=== PATIENT | female | born 1950 | race Caucasian/White ===

== ENCOUNTER → 2016-12-25 | Outpatient (CLI) | payer OTHER, MEDICARE | LOC: FIMAGING 10:20 | PROVIDERS: ATTEND Physician Assistant | DX: D25.1 Intramural leiomyoma of uterus (principal); D25.2 Subserosal leiomyoma of uterus; Z78.0 Asymptomatic menopausal state ==

== ENCOUNTER → 2017-01-13 | Outpatient (CLI) | payer OTHER, MEDICARE | LOC: FIMAGING 10:45 | PROVIDERS: ATTEND Surgery | DX: Z12.39 Encounter for other screening for malignant neoplasm of breast (principal); N63 Unspecified lump in breast ==

== ENCOUNTER → 2017-03-10 | Outpatient (CLI) | payer OTHER, MEDICARE | LOC: FIMAGING 10:59 | PROVIDERS: ATTEND Family Medicine | DX: M54.5 Low back pain (principal); R93.7 Abnormal findings on diagnostic imaging of other parts of musculoskeletal system ==

== ENCOUNTER → 2017-06-04 | Outpatient (CLI) | payer OTHER, MEDICARE | LOC: FIMAGING 10:10 | PROVIDERS: ATTEND Surgery | DX: Z12.31 Encounter for screening mammogram for malignant neoplasm of breast (principal); Z80.3 Family history of malignant neoplasm of breast | CPT/HCPCS: G0202 ==

== ENCOUNTER 2017-12-09 18:38 | Emergency (ER) | payer OTHER, MEDICARE ==
[2017-12-09 18:47] VITALS: TEMP 98.2
--- NOTE | 2017-12-09 19:10 | CPEKG ---
Heart Rate: 77 RR Interval: 779 P-R Interval: 156 QRSD Interval: 74 QT Interval: 404 QTC Interval: 458 P Long Barn: 76 QRS Long Barn: 73 T Wave Long Barn: 41 EKG Severity - NORMAL ECG - EKG Impression: SINUS RHYTHM Electronically Signed By: Candelario Will 09-Dec-2017 19:19:59
--- NOTE | 2017-12-09 19:19 | EDPHY ---
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 Today she was at home and at around 1800 had sudden onset of severe right lower chest and upper abdomen pain radiating into her epigastrium and her right jaw which lasted 15 min. She describes it as pain which was"intense"and is essentially gone now. Not positional or pleuritic. Not associated with fever or chills. No vomiting or diarrhea. Not short of breath. No recent injury or trauma. REVIEW OF SYSTEMS: Eye: no change in vision ENT: no sore throat, no dental symptoms Cardiac: HPI Pulmonary: no cough or SOB Abdomen: HPI Musculoskeletal: no back pain Skin: no rash Neuro: no headache Constitutional: no fever : no urinary symptoms A comprehensive 10 point review of systems is otherwise negative aside from elements mentioned in the history of present illness. PAST MEDICAL HISTORY: Leiomyosarcoma, hysterectomy, fibula fracture, GERD. Negative for diabetes hypertension or hypercholesterolemia Nonsmoker, brother had an AL 2 years ago, they are 11 months apart Social history: Here with and brother, nonsmoker General Appearance: Alert and conversant, cooperative. Eyes: No scleral icterus. ENT, Mouth: Normal mucous membranes. No gum swelling or trismus. Normal pharynx. No jaw tenderness or external facial swelling. Respiratory: Normal respiratory effort, breath sounds equal, lungs are clear to auscultation. No splinting. Cardiovascular: Regular rate and rhythm. Gastrointestinal: Abdomen is soft and non tender. No Astorga sign and no epigastric tenderness. Neurological: Alert, face symmetric, normal motor and sensory in extremities. Skin: Warm and dry, no rashes. Musculoskeletal: No peripheral edema. Psychiatric: Not agitated. Emergency Department course/MDM: Low clinical suspicion for PE, D-dimer ordered. LFTs and lipase. EKG is normal, checked troponin. Patient says that"I think my stomach might be inflamed." 2013: Troponin negative, D-dimer 1.94, CTA discussed and consented. I think acute coronary syndrome or AL would be unlikely; 2 points for age and 1 for risk factor of family history on heart score, low risk. 2043: CT shows stable liver, no pulmonary embolism or other chest abnormality per Dr. Aguilar. Results discussed at this time, still asymptomatic, stable for discharge. Smoking Status: Never smoked Constitutional: Initial Vital Signs Temperature (C) 36.8 C 12/09/17 18:45 Heart Rate 88 12/09/17 18:45 Respiratory Rate 18 12/09/17 18:45 Blood Pressure 118/51 L 12/09/17 18:45 O2 Sat (%) 96 12/09/17 18:45 O2 Delivery Mode Room Air Allergies/Adverse Reactions: codeine Allergy (Verified 12/09/17 18:43) diphenhydramine [From Benadryl] Allergy (Verified 12/09/17 18:43) Home Medications: Medication Instructions Recorded Cholecalciferol Vit D3 [Vitamin D3 5,000 units PO DAILY 06/30/15 (*)] Herbals/Supplements -Info Only 1 ea PO DAILY 06/30/15 Melatonin [Melatonin 5 mg] 20 mg PO HS 06/30/15 [place]-3 Fatty Acids [Fish Oil 1000 4,000 mg PO DAILY 06/30/15 mg (*)] Vitamin B Complex [B Complex] 1 tab PO DAILY 06/30/15 Cholecalciferol Vit D3 [Vitamin D3 5,000 units PO DAILY #0 tab 07/02/15 (*)] Melatonin [Melatonin 5 Mg] 0 mg PO HS 07/02/15 [place]-3 Fatty Acids [Fish Oil 1000 4,000 mg PO DAILY #0 cap 07/02/15 mg (*)] Omeprazole 12/09/17 Medical Decision Making - Diagnostics EKG Interpretation: 12-lead EKG interpreted by me; official reading is in trace master. My interpretation is sinus rhythm rate 77 with no ischemic changes, normal Imaging Results: Imaging Impressions Chest/Thorax CTA 12/09/17 20:14 Impression: 1. No evidence of pulmonary embolus using CT protocol. 2. Liver lesions are once again noted. Findings discussed with Candelario Will M.D. at 20:44 hour, 12/09/2017. Imaging: Discussed imaging studies w/ grooving machine operator Radiologist Differential Diagnosis: Differential diagnosis considered for chest pain including but not limited to gallbladder disease, hepatitis, pancreatitis, myocardial ischemia, aortic dissection, pericarditis, pulmonary embolus, chest wall pain, pleural inflammation and pulmonary infectious causes. - Data Points Laboratory Results: Laboratory Results 12/09/17 19:28 12/09/17 19:28 18 18 18 19:28 19:28 19:28 WBC 6.42 10^3/uL 10^3/uL (3.80-9.50) RBC 3.82 10^6/uL L 10^6/uL (4.18-5.33) Hgb 12.4 g/dL L g/dL (12.6-16.3) Hct 36.4 % L % (38.0-47.0) MCV 95.3 fL fL (81.5-99.8) MCH 32.5 pg pg (27.9-34.1) MCHC 34.1 g/dL g/dL (32.4-36.7) RDW 14.3 % % (11.5-15.2) Plt Count 289 10^3/uL 10^3/uL (150-400) MPV 9.2 fL fL (8.7-11.7) Neut % (Auto) 70.8 % % (39.3-74.2) Lymph % (Auto) 22.1 % % (15.0-45.0) [place] % (Auto) 5.6 % % (4.5-13.0) Eos % (Auto) 0.0 % L % (0.6-7.6) Baso % (Auto) 0.9 % % (0.3-1.7) Nucleat RBC Rel Count 0.0 % % (0.0-0.2) Absolute Neuts (auto) 4.54 10^3/uL 10^3/uL (1.70-6.50) Absolute Lymphs (auto) 1.42 10^3/uL 10^3/uL (1.00-3.00) Absolute Monos (auto) 0.36 10^3/uL 10^3/uL (0.30-0.80) Absolute Eos (auto) 0.00 10^3/uL L 10^3/uL (0.03-0.40) Absolute Basos (auto) 0.06 10^3/uL 10^3/uL (0.02-0.10) Absolute Nucleated RBC 0.00 10^3/uL 10^3/uL (0-0.01) Immature Gran % 0.6 % % (0.0-1.1) Immature Gran # 0.04 10^3/uL 10^3/uL (0.00-0.10) D-Dimer 1.94 ug/mLFEU H ug/mLFEU (0.00-0.50) Sodium 139 mEq/L mEq/L (135-145) Potassium 4.5 mEq/L mEq/L (3.5-5.2) Chloride 103 mEq/L mEq/L (97-110) Carbon Dioxide 28 mEq/l mEq/l (22-31) Anion Gap 8 mEq/L mEq/L (8-16) BUN 20 mg/dL mg/dL (7-23) Creatinine 0.6 mg/dL mg/dL (0.6-1.0) Estimated GFR > 60 Glucose 102 mg/dL H mg/dL (70-100) Calcium 9.2 mg/dL mg/dL (8.5-10.4) Total Bilirubin 0.4 mg/dL mg/dL (0.1-1.4) Conjugated Bilirubin 0.4 mg/dL mg/dL (0.0-0.5) Unconjugated Bilirubin 0.0 mg/dL mg/dL (0.0-1.1) AST 33 IU/L IU/L (14-46) ALT 59 IU/L H IU/L (9-52) Alkaline Phosphatase 141 IU/L H IU/L (38-126) Troponin I < 0.012 ng/mL ng/mL (0.000-0.034) Total Protein 6.3 g/dL g/dL (6.3-8.2) Albumin 3.7 g/dL g/dL (3.5-5.0) Lipase 161 IU/L IU/L (23-300) Departure - Departure Disposition: Home, Routine, Self-Care Clinical Impression: Chest pain Qualifiers: Chest pain type: unspecified Qualified Code(s): R07.9 - Chest pain, unspecified Condition: Good Instructions: Chest Pain (ED) Referrals: Maryellen Cardenas MD [Primary Care Provider] - As per Instructions
[2017-12-09 19:42] LABS: PLATELET COUNT 289 10^3/uL (150-400)
[2017-12-09] MEDS ORDERED: IOPAMIDOL (ISOVUE 370) 100 ML BTL IV ONE (20:16)
[2017-12-09 20:40] VITALS: RESP 16
[2017-12-09 20:58] VITALS: BP 106/63; PULSE 74; O2SAT 96
== END 2017-12-09 21:02 | disposition home or self-care (01) ==
DX: R07.9 Chest pain, unspecified (principal); Z90.710 Acquired absence of both cervix and uterus
CPT/HCPCS: 71275; 93005; 99285; Q9967

== ENCOUNTER → 2018-02-04 | Outpatient (CLI) | payer OTHER, MEDICARE | LOC: BHFA 11:30 | PROVIDERS: ATTEND Internal Medicine Cardiovascular Disease | DX: C49.9 Malignant neoplasm of connective and soft tissue, unspecified (principal) ==

== ENCOUNTER 2018-02-25 19:34 | Inpatient (IN) | payer OTHER, MEDICARE ==
--- NOTE | 2018-02-25 20:18 | EDPHY ---
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 Throughout the day she has felt slightly cold and generally under the weather. She checked her temperature around 19:00, about 1 hour ago, and measured it at 101F. She has not taken any antipyretics. She has also had a dry cough for the last 3 weeks. She most recently had chemotherapy on 02/23, 2 days ago, which was her 5th cycle. She is receiving Adriamycin and the Lartruvo. She denies vomiting, sore throat headache , earache, dyspnea, chest pain, dyspnea, urinary symptoms. She has some watery stools intermittently at baseline, but not today. She also thinks she has a thrush infection in her mouth. REVIEW OF SYSTEMS: A 10 point review of systems was performed and is negative with the exception of the elements mentioned in the history of present illness. Past medical history: 1. Leiomyosarcoma, on chemotherapy currently - Doxorubicin, Olaratumab 2. GERD Past surgical history: 1. Hysterectomy 2. Tumor resection from outside of small intestine 10/19/17, Dr. Colon. 3. Left femur fracture repair 06/30/15 Prior medical records reviewed including ED visit 12/09/17 for chest pain. Family history: Noncontributory Social history: at bedside. Nonsmoker. 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 Has seen Dr. Shannon at [facility]. Adult Physical: General Appearance: Alert, no acute distress. Eyes: Pupils equal and round, no conjunctival injection, no discharge. ENT, Mouth: Mucous membranes are moist, no oropharyngeal erythema or edema. No thrush visualized. Neck: No lymphadenopathy, supple. Respiratory: Lungs are clear to auscultation but distant bilaterally; no wheezes , rales, or rhonchi. Cardiovascular: Tachycardic regular rate and rhythm; no murmur, rub, or gallop. Port in place, left chest. Gastrointestinal: Abdomen is soft and non tender, no masses or organomegaly. Skin: Warm and dry, no rashes, normal color. Back: Nontender to palpation over the thoracolumbar spine. Extremities: No lower extremity edema, no calf tenderness or swelling. Neurological: Alert and oriented. Moving all four extremities easily and equally. Psychiatric: Normal affect. - Personal History Current Tetanus/Diphtheria Vaccine: Yes Current Tetanus Diphtheria and Acellular Pertussis (TDAP): Yes - Medical/Surgical History Hx Asthma: No Hx Chronic Respiratory Disease: No Hx Diabetes: No Hx Cardiac Disease: No Hx Renal Disease: No Hx Cirrhosis: No Hx Alcoholism: No Hx HIV/AIDS: No Hx Splenectomy or Spleen Trauma: No Other PMH: l fibular fx 2012, osteoporosis, right breast surgery, gerd. liver cancer - Social History Smoking Status: Never smoked Constitutional: Initial Vital Signs Temperature (C) 37.5 C 02/25/18 19:51 Heart Rate 106 H 02/25/18 19:51 Respiratory Rate 18 02/25/18 19:51 Blood Pressure 122/60 H 02/25/18 19:51 O2 Sat (%) 96 02/25/18 19:51 O2 Delivery Mode Room Air Allergies/Adverse Reactions: codeine Allergy (Verified 12/09/17 18:43) diphenhydramine [From Benadryl] Allergy (Verified 12/09/17 18:43) Home Medications: Medication Instructions Recorded Herbals/Supplements -Info Only 1 ea PO DAILY 06/30/15 Melatonin [Melatonin 5 mg] 20 mg PO HS 06/30/15 Vitamin B Complex [B Complex] 1 tab PO DAILY 06/30/15 Cholecalciferol Vit D3 [Vitamin D3 5,000 units PO DAILY #0 tab 07/02/15 (*)] Adriamycin 02/25/18 Doxorubicin HCl 02/25/18 Medical Decision Making - Diagnostics Imaging Results: Imaging Impressions Chest X-Ray 02/25/18 20:24 Impression: 1. Hyperexpansion suggests airways disease. 2. Negative for pneumonia. 3. See above report for additional findings. Imaging: I viewed and interpreted images myself ED Course/Re-evaluation: This is a 67 y/o female currently undergoing chemotherapy (most recent dose 02/23 ) for leiomyosarcoma and presents with a 1-hour history of a fever of 101F with associated general malaise and chills throughout the day. She is tachycardic on exam with equal but distant breath sounds. Concern for neutropenic fever. Plan for IV, labs, UA, cultures, chest x-ray. Chest x-ray: no pneumonia WBC extremely low at 0.74. Lactate, CHEM, and urine are normal. Patient will require treatment and admission for neutropenic fever of unknown source without sepsis. Consulted with Dr. Anand, oncologist. He recommends admission and treatment with IV Cefepime. Spoke with hospitalist service. Dr. Amin accepts admission. Differential Diagnosis: Considered a differential diagnosis that includes but is not limited to sepsis, neutropenic fever, pneumonia, influenza, urinary tract infection, intra- abdominal infection, viral illness. - Data Points Laboratory Results: Laboratory Results 02/25/18 20:35 02/25/18 20:55 02/25/18 02/25/18 02/25/18 21:00 20:55 20:55 WBC RBC Hgb Hct MCV MCH MCHC RDW Plt Count MPV Neut % (Auto) Lymph % (Auto) [place] % (Auto) Eos % (Auto) Baso % (Auto) Nucleat RBC Rel Count Absolute Neuts (auto) Absolute Lymphs (auto) Absolute Monos (auto) Absolute Eos (auto) Absolute Basos (auto) Absolute Nucleated RBC Immature Gran % Immature Gran # Smear Review By PT 12.9 SEC SEC (12.0-15.0) INR 0.95 (0.83-1.16) APTT 31.3 SEC SEC (23.0-38.0) VBG Lactic Acid Sodium 135 mEq/L mEq/L (135-145) Potassium 3.8 mEq/L mEq/L (3.3-5.0) Chloride 101 mEq/L mEq/L (97-110) Carbon Dioxide 23 mEq/l mEq/l (22-31) Anion Gap 11 mEq/L mEq/L (8-16) BUN 19 mg/dL mg/dL (7-23) Creatinine 0.6 mg/dL mg/dL (0.6-1.0) Estimated GFR > 60 Glucose 103 mg/dL H mg/dL (70-100) Calcium 8.7 mg/dL mg/dL (8.5-10.4) Total Bilirubin 0.4 mg/dL mg/dL (0.1-1.4) Urine Color YELLOW Urine Appearance HAZY Urine pH 7.0 (5.0-7.5) Ur Specific [place] 1.008 (1.002-1.030) Urine Protein NEGATIVE (NEGATIVE) Urine Ketones NEGATIVE (NEGATIVE) Urine Blood NEGATIVE (NEGATIVE) Urine Nitrate NEGATIVE (NEGATIVE) Urine Bilirubin NEGATIVE (NEGATIVE) Urine Urobilinogen NEGATIVE EU EU (0.2-1.0) Ur Leukocyte Esterase NEGATIVE (NEGATIVE) Urine Glucose NEGATIVE (NEGATIVE) 02/25/18 02/25/18 20:35 20:35 WBC 0.74 10^3/uL L* 10^3/uL (3.80-9.50) RBC 2.75 10^6/uL L 10^6/uL (4.18-5.33) Hgb 8.9 g/dL L g/dL (12.6-16.3) Hct 26.6 % L % (38.0-47.0) MCV 96.7 fL fL (81.5-99.8) MCH 32.4 pg pg (27.9-34.1) MCHC 33.5 g/dL g/dL (32.4-36.7) RDW 15.0 % % (11.5-15.2) Plt Count 61 10^3/uL L 10^3/uL (150-400) MPV 10.3 fL fL (8.7-11.7) Neut % (Auto) 4.0 % L % (39.3-74.2) Lymph % (Auto) 75.7 % H % (15.0-45.0) [place] % (Auto) 4.1 % L % (4.5-13.0) Eos % (Auto) 10.8 % H % (0.6-7.6) Baso % (Auto) 2.7 % H % (0.3-1.7) Nucleat RBC Rel Count 0.0 % % (0.0-0.2) Absolute Neuts (auto) 0.03 10^3/uL L 10^3/uL (1.70-6.50) Absolute Lymphs (auto) 0.56 10^3/uL L 10^3/uL (1.00-3.00) Absolute Monos (auto) 0.03 10^3/uL L 10^3/uL (0.30-0.80) Absolute Eos (auto) 0.08 10^3/uL 10^3/uL (0.03-0.40) Absolute Basos (auto) 0.02 10^3/uL 10^3/uL (0.02-0.10) Absolute Nucleated RBC 0.00 10^3/uL 10^3/uL (0-0.01) Immature Gran % 2.7 % H % (0.0-1.1) Immature Gran # 0.02 10^3/uL 10^3/uL (0.00-0.10) Smear Review By Pending PT INR APTT VBG Lactic Acid 1.1 mmol/L mmol/L (0.7-2.1) Sodium Potassium Chloride Carbon Dioxide Anion Gap BUN Creatinine Estimated GFR Glucose Calcium Total Bilirubin Urine Color Urine Appearance Urine pH Ur Specific [place] Urine Protein Urine Ketones Urine Blood Urine Nitrate Urine Bilirubin Urine Urobilinogen Ur Leukocyte Esterase Urine Glucose Medications Given: Discontinued Medications Cefepime HCl 1 gm/ Sterile (Water) 11.3 mls @ 135.6 mls/hr IV EDNOW ONE PRN Reason: Protocol Stop: 02/25/18 22:15 Last Admin: 02/25/18 22:47 Dose: 11.3 mls Lorazepam (Ativan Injection) 1 mg IVP EDNOW ONE Stop: 02/25/18 22:35 Last Admin: 02/25/18 22:35 Dose: 1 mg Departure - Departure Disposition: [facility] Clinical Impression: Neutropenic fever Condition: Fair Report Scribed for: Adilia De Dios Report Scribed by: Sara Bruno Date of Report: 02/25/18 Time of Report: 20:18 Physician Review and Approval Statement: 02/25/18 22:53 Portions of this note were transcribed by the medical writer. I, Dr. Adilia De Dios, personally performed the history, physical exam, and medical decision- making; and confirmed the accuracy of the information in the transcribed note.
[2018-02-25 21:14] LABS: INR 0.95 (0.83-1.16); PROTIME(PATIENT) 12.9 SEC (12.0-15.0)
[2018-02-25 21:33] LABS: PLATELET COUNT 61 10^3/uL (150-400)
[2018-02-25] MEDS ORDERED: CEFEPIME HCL 1 GM in STERILE WATER INJ 11.3 ML IV ONE (22:11)
[2018-02-25] MEDS ORDERED: LORazepam 2 MG/ML INJ ONE (22:33)
[2018-02-25] MEDS ORDERED: LORazepam 2 MG/ML INJ IVP ONE (22:34)
[2018-02-25] MEDS ORDERED: ONDANSETRON 4 MG/2 ML VIAL IVP PRN (22:52)
[2018-02-25] MEDS ORDERED: HYDROCODONE/APAP 5/325 TAB PO PRN (22:52)
[2018-02-25] MEDS ORDERED: MELATONIN 3 MG TAB PO PRN (22:59)
[2018-02-26] MEDS ORDERED: diphenhydrAMINE 25 MG CAP PO PRN (00:02)
[2018-02-26] MEDS: NS 1,000 ML IV SCH (00:05)
--- NOTE | 2018-02-26 00:53 | PDGENHP ---
History and Physical - Chief Complaint Fever - History of Present Illness Source-patient provides history appears reliable. EMR was reviewed and case discussed with ED provider. HPI-this is a very pleasant 67-year-old female with past medical history significant for leiomyosarcoma who is currently undergoing chemotherapy cycle 5 last received on 02/23 with doxorubicin and olaratumab. Patient reports that she has been experiencing increased fatigue and malaise throughout the day. Approximately 7:00 p.m. She had a measured fever of 101 F at home. Patient also notes that all day she has been feeling quite chilled and had been bone Ling up in blankets and sweaters at home. She denies any nausea or vomiting. No rhinorrhea or sore throat. Patient denies any dysuria hematuria. She has noted a slight cough for the past 2-3 weeks that is dry and nonproductive. She also notices it is worsened and exacerbated when she ever she takes in a deep breath. She denies any wheezing. No known sick contacts. Patient denies any chest pain or palpitations. Her appetite has been slightly decreased. Her oral hydration however patient reports has been fairly good at approximately 64 oz of fluids daily however this evening patient reports that she did feel quite dry. History Information - Allergies/Home Medication List Allergies/Adverse Reactions: codeine Allergy (Verified 12/09/17 18:43) diphenhydramine [From Benadryl] Allergy (Verified 12/09/17 18:43) Home Medications: Herbals/Supplements -Info Only 1 ea PO DAILY 06/30/15 [Last Taken 06/30/15 08:30 ] Melatonin [Melatonin 5 mg] 20 mg PO HS 06/30/15 [Last Taken 06/29/15 22:00] Vitamin B Complex [B Complex] 1 tab PO DAILY 06/30/15 [Last Taken 06/30/15 08:30 ] Adriamycin 02/25/18 [Last Taken Unknown] Doxorubicin HCl 02/25/18 [Last Taken Unknown] I have personally reviewed and updated: family history, medical history, social history, surgical history - Past Medical History Additional medical history: Leiomyosarcoma, GERD, osteoporosis, liver cancer - Surgical History Additional surgical history: Power port placement the left. Hysterectomy. Tumor resection off of the bowel 10/19/2017. Left femur fracture repair. Right breast surgery. - Family History Additional family history: Mother-CHF in HTN. Brother-CAD/ID. No family members with history of cancer. - Social History Smoking Status: Never smoked Alcohol Use: None Drug Use: Marijuana (Patient takes marijuana tabs for sleep p.r.n..) Additional social history: Patient is lives with her . Review of Systems Review of Systems: ROS: 10pt was reviewed & negative except for what was stated in HPI & below Constitutional: Reports: malaise. Denies: chills, fever, weakness EENMT: Reports: no symptoms Cardiac: Reports: no symptoms Respiratory: Reports: cough. Denies: shortness of breath Gastrointestinal: Reports: no symptoms Genitourinary: Reports: no symptoms Muscolosketal: Reports: no symptoms Skin: Reports: no symptoms Neurological: Reports: no symptoms Hematologic/Lymphatic: Reports: anemia Physical Exam Physical Exam: Temp Pulse Resp BP Pulse Ox 36.8 C 90 16 110/60 94 02/25/18 23:45 02/25/18 23:45 02/25/18 23:45 02/25/18 23:45 02/25/18 23:45 Constitutional: no apparent distress, chronically ill appearing, other (Thin) Eyes: PERRL, anicteric sclera, EOMI, No scleral injection Ears, Nose, Mouth, Throat: no oral mucosal ulcers, dry mucous membranes, No poor dentition Cardiovascular: regular rate and rhythym, no murmur, rub, or gallop, No systolic murmur, No edema Peripheral Pulses: 1+: dorsalis-pedis (R), dorsalis-pedis (L) Respiratory: no respiratory distress, no rales or rhonchi, clear to auscultation , other (Occasional cough. Nonproductive.) Gastrointestinal: normoactive bowel sounds, no palpable masses, tenderness ( Patient with a little bit of tenderness in the lower abdomen centrally. No rebound or guarding appreciated.), No guarding, No distension Genitourinary: no bladder fullness, no bladder tenderness, No aguillon in urethra Skin: warm, normal color, no rashes or abrasions, no fluctuance, No erythema, No rash Musculoskeletal: full muscle strength, normal joint ROM, other (Patient able to sit up independently.), No generalized weakness Neurologic: AAOx3, sensation intact bilaterally, No facial droop Psychiatric: interacting appropriately, not anxious, not encephalopathic, thought process linear Lab Data & Imaging Review 02/25/18 20:35 02/25/18 20:55 WBC 0.74 10^3/uL (3.80-9.50) L* 02/25/18 20:35 RBC 2.75 10^6/uL (4.18-5.33) L 02/25/18 20:35 Hgb 8.9 g/dL (12.6-16.3) L 02/25/18 20:35 Hct 26.6 % (38.0-47.0) L 02/25/18 20:35 MCV 96.7 fL (81.5-99.8) 02/25/18 20:35 MCH 32.4 pg (27.9-34.1) 02/25/18 20:35 MCHC 33.5 g/dL (32.4-36.7) 02/25/18 20:35 RDW 15.0 % (11.5-15.2) 02/25/18 20:35 Plt Count 61 10^3/uL (150-400) L 02/25/18 20:35 MPV 10.3 fL (8.7-11.7) 02/25/18 20:35 Neut % (Auto) 4.0 % (39.3-74.2) L 02/25/18 20:35 Lymph % (Auto) 75.7 % (15.0-45.0) H 02/25/18 20:35 [place] % (Auto) 4.1 % (4.5-13.0) L 02/25/18 20:35 Eos % (Auto) 10.8 % (0.6-7.6) H 02/25/18 20:35 Baso % (Auto) 2.7 % (0.3-1.7) H 02/25/18 20:35 Nucleat RBC Rel Count 0.0 % (0.0-0.2) 02/25/18 20:35 Absolute Neuts (auto) 0.03 10^3/uL (1.70-6.50) L 02/25/18 20:35 Absolute Lymphs (auto) 0.56 10^3/uL (1.00-3.00) L 02/25/18 20:35 Absolute Monos (auto) 0.03 10^3/uL (0.30-0.80) L 02/25/18 20:35 Absolute Eos (auto) 0.08 10^3/uL (0.03-0.40) 02/25/18 20:35 Absolute Basos (auto) 0.02 10^3/uL (0.02-0.10) 02/25/18 20:35 Absolute Nucleated RBC 0.00 10^3/uL (0-0.01) 02/25/18 20:35 Immature Gran % 2.7 % (0.0-1.1) H 02/25/18 20:35 Immature Gran # 0.02 10^3/uL (0.00-0.10) 02/25/18 20:35 PT 12.9 SEC (12.0-15.0) 02/25/18 20:55 INR 0.95 (0.83-1.16) 02/25/18 20:55 APTT 31.3 SEC (23.0-38.0) 02/25/18 20:55 VBG Lactic Acid 1.1 mmol/L (0.7-2.1) 02/25/18 20:35 Sodium 135 mEq/L (135-145) 02/25/18 20:55 Potassium 3.8 mEq/L (3.3-5.0) 02/25/18 20:55 Chloride 101 mEq/L (97-110) 02/25/18 20:55 Carbon Dioxide 23 mEq/l (22-31) 02/25/18 20:55 Anion Gap 11 mEq/L (8-16) 02/25/18 20:55 BUN 19 mg/dL (7-23) 02/25/18 20:55 Creatinine 0.6 mg/dL (0.6-1.0) 02/25/18 20:55 Estimated GFR > 60 02/25/18 20:55 Glucose 103 mg/dL (70-100) H 02/25/18 20:55 Calcium 8.7 mg/dL (8.5-10.4) 02/25/18 20:55 Total Bilirubin 0.4 mg/dL (0.1-1.4) 02/25/18 20:55 Urine Color YELLOW 02/25/18 21:00 Urine Appearance HAZY 02/25/18 21:00 Urine pH 7.0 (5.0-7.5) 02/25/18 21:00 Ur Specific [place] 1.008 (1.002-1.030) 02/25/18 21:00 Urine Protein NEGATIVE (NEGATIVE) 02/25/18 21:00 Urine Ketones NEGATIVE (NEGATIVE) 02/25/18 21:00 Urine Blood NEGATIVE (NEGATIVE) 02/25/18 21:00 Urine Nitrate NEGATIVE (NEGATIVE) 02/25/18 21:00 Urine Bilirubin NEGATIVE (NEGATIVE) 02/25/18 21:00 Urine Urobilinogen NEGATIVE EU (0.2-1.0) 02/25/18 21:00 Ur Leukocyte Esterase NEGATIVE (NEGATIVE) 02/25/18 21:00 Urine Glucose NEGATIVE (NEGATIVE) 02/25/18 21:00 Imaging Review: PA and Lateral Chest Clinical Indications: Infection suspected in a 67-year-old female; patient meets sepsis criteria. Comparison: CT scan of the chest December 09, 2017 and chest radiography June 2015. Findings: The lungs are clear. Calcified granuloma is seen in the left upper lobe. There is hyperexpansion with flattening of the hemidiaphragms noted. A central venous catheter is in position. The heart size and pulmonary vascularity are normal. Pleural surfaces and bony thorax are negative for acute abnormality. Postoperative changes are noted on the right side in a patient with a history of breast cancer. Impression: 1. Hyperexpansion suggests airways disease. 2. Negative for pneumonia. 3. See above report for additional findings. Visualized and Interpreted Chest x-ray results: Yes Visualized and Interpreted imaging results: Yes Assessment & Plan Assessment: Pleasant 67-year-old female with history of leiomyosarcoma undergoing chemotherapy status post cycle 5. Who presents with complaints of fever to 101 F and generalized malaise. #Neutropenic fever (Acute) - no identified source at this time for potential infectious etiology. Chest x-ray does appear to be acceptable. She has complained of a nonproductive cough ongoing for the last 3 weeks. She denies any nausea vomiting diarrhea or dysuria hematuria. UA and other laboratory studies are otherwise unremarkable. Patient has been started on cefepime as per recommendations with Oncology. Will consult in the morning as well for further recommendations. Blood cultures x2 are also pending. Will hold off on of a addition of vancomycin no evidence of skin infections or potential port infection. Patient has been placed on neutropenic precautions. #Pancytopenia - following chemotherapy. Will monitor daily CBCs. H&H low normal but does not require any transfusion at this point. Patient also with a thrombocytopenia which will need to monitor closely. No anticipated plan for replacement unless H&H drops below 7 and 21 and platelet count below 10K without evidence of bleeding or as per Oncology Service. #Leiomyosarcoma - patient undergoing treatment with doxorubicin and olaratumab. oncology consultation in a.m. #GERD - patient is not currently receiving treatment. Asymptomatic at this time. #Osteoporosis - resume patient's home vitamin supplementation if desired or wait until discharge. FEN - IV fluids for supplementation. Electrolyte monitoring and replacement if needed. Regular diet with supplementation of Ensure chocolate preferred. Nutrition consult also requested. PPX-SCDs holding anticoagulation at this time in setting of pancytopenia and thrombocytopenia. Cor-anticipated full code however will need further discussion in the morning as patient increasingly somnolent after receiving Ativan in the ED. Disposition-patient admitted to inpatient status on the oncology/medical floor. Given history of fevers in severe neutropenia anticipate greater than 2 midnight stay with monitoring of patient's culture results.
[2018-02-26] MEDS: CEFEPIME HCL 1 GM in STERILE WATER INJ 11.3 ML IV SCH ×3 (05:00→20:53)
[2018-02-26 05:18] LABS: INR 1.03 (0.83-1.16); PROTIME(PATIENT) 13.7 SEC (12.0-15.0)
[2018-02-26 05:30] LABS: PLATELET COUNT 56 10^3/uL (150-400)
[2018-02-26] MEDS: SENNOSIDES/DOCUSATE SODIUM TAB PO SCH ×2 (10:08→19:55)
--- NOTE | 2018-02-26 10:11 | GCON ---
[f rep st] CONSULTATION INPATIENT ONCOLOGY CONSULTATION. DATE OF CONSULTATION: 02/26/2018 REFERRING PHYSICIAN: Bridgette Amin MD OUTPATIENT ONCOLOGIST: Dr. Codey Shannon. REASON FOR CONSULTATION: Febrile neutropenia. 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 She presented in October and was found to have a uterine tumor, along with a large 9.5 c m mesenteric mass. She later developed multiple liver metastases. [facility] under the direction of Dr. Román Bartholomew. She has been receiv ing Adriamycin and olaratumab, a monoclonal antibody used to treat soft-tissue sarcoma. She received cycle 5 on February 16. She has not been receiving growth factor support. Yesterday, she developed chil ls and a cough, and her temperature was 101. She came to the emergency department. A chest x-ray wa s unremarkable, though her neutrophil count was close to 0. She was started on cefepime and admitted overnight for observation. She says that she is feeling better this morning. PAST MEDICAL HISTORY: Ductal carcinoma in situ of the breast in 2013, treated with lumpectomy and ra diation. CURRENT MEDICATIONS: Include cefepime and [place] as needed for pain. ALLERGIES: She is allergic to codeine. FAMILY HISTORY: Noncontributory. SOCIAL HISTORY: She is a nonsmoker, nondrinker. Lives with her family. REVIEW OF SYSTEMS: Other than pertinent positives noted in the HPI, 14-point review of systems is ne gative. EXAMINATION: VITAL SIGNS: Her temperature is 36.9, blood pressure 110/68, heart rate 92, oxygen sat uration 95% on room air. GENERAL: She was a somewhat cachectic-appearing woman, breathing comfortab ly, no acute distress. HEENT: Sclerae anicteric. Oropharynx is clear. NECK: Supple. No lymphade nopathy. LUNGS: Notable for some rhonchi at the right base. CARDIAC: Regular rhythm. No murmurs, gallops, or rubs. ABDOMEN: Normoactive bowel sounds, nontender. EXTREMITIES: Without edema. 2+ pulses. NEUROLOGIC: She is alert and oriented x3. Strength and se nsation were normal. Gait was not tested. LABORATORY DATA: White count 0.72 with absolute neutrophil count of 10, hemoglobin 8.9, platelets 56 . Basic metabolic panel was normal. Chest x-ray showed hyperinflation but no evidence of pneumonia. IMPRESSION: This is a 67-year-old woman, being treated with cytotoxic chemotherapy for metastatic le iomyosarcoma, presenting with severe neutropenia and fever. I suspect that she is developing right l ower lobe pneumonia based on her exam and symptoms, though nothing showed up on her chest x-ray done on admission. She is hemodynamically stable and remains profoundly neutropenic. RECOMMENDATIONS: 1. Continue cefepime. 2. Will await recovery of her white blood cells. In the past, her marcella has only lasted a few days. I do not think growth factor support is needed right now. 3. She will follow up on discharge with Dr. Bartholomew at the [facility]. He is apparently p edmundo another CT scan to see if her cancer is responding to therapy. We discussed the option for c linical trials if she needs another line of therapy, though it is not clear if there are any studies open in [place] that she would be eligible for. She also has the option of following up with Dr. Abel yao [facility]. We will continue to follow the patient with you closely while she is in the hospital. /[id number]/MODL
--- NOTE | 2018-02-26 11:15 | PDMN ---
Medical Necessity Medical necessity: est los>2mn for neutropenic fever of unknown source; currently on chemo for leiomyosarcoma; admit for IV abx, onc consult, IVF, and follow cx's; comorbid GERD, osteoporosis; per order and H&P 02/25/18
[2018-02-26] MEDS: MAGNESIUM OXIDE 400 MG TAB PO SCH ×3 (14:14→21:02)
--- NOTE | 2018-02-26 16:00 | ASMTCMCOM ---
CM Note CM Note Notes: Pt admitted for neutropenic fever.Pt curretnly on IV ABX. Anticipate that pt will DC on oral ABX and have no DC needs. CM available if needs change. Date Signed: 02/26/2018 03:59 PM Electronically Signed By:Pauly Bonilla LCSW
--- NOTE | 2018-02-26 17:59 | HOSPPROG ---
Hospitalist Progress Note Assessment/Plan: Assessment: 67 yo F p/w neutropenic fever Plan: # Neutropenic fever (Acute, new problem to this provider, further w/u indicated ) - no clearly identified source at this time, suspect GI translocation, only physical symptom non-productive cough, CXR w/o infiltrate (personally interpreted), UA wnl -get RVP -monitor BCx -remains severely neutropenic, cont on Cefepime as GI is most likely etiology of fever -per Dr. Anand, her neutropenia is usually fairly brief, so no indication for colony stimulating factor at this time -monitor neutrophil count, currently low Monos so will likely be another 48- 72hrs before ANC recovery # Acute atelectasis - present on exam, IS # Pancytopenia - 2/2 chemotherapy -no e/o bleeding -monitor CBC # Leiomyosarcoma - patient undergoing treatment with doxorubicin and olaratumab , appreciate ongoing oncology consultation #GERD - patient is not currently receiving treatment, asymptomatic at this time. #Osteoporosis - resume patient's home vitamin supplementation Diet - Regular diet with supplementation of Ensure chocolate preferred, Nutrition consult also requested. PPX - SCDs holding anticoagulation at this time in setting of pancytopenia and thrombocytopenia. Code - Full Dispo - ADD uncertain, remains severely neutropenic Subjective: patient reports no recurrent chills Objective: Vital Signs Temp Pulse Resp BP Pulse Ox 37.2 C 92 12 100/64 96 02/26/18 16:25 02/26/18 16:25 02/26/18 16:25 02/26/18 16:25 02/26/18 16:25 Microbiology 02/26/18 15:25 Respiratory Panel (PCR) - Final Nasal, Sinus - Anaerobic Tube/Swab No Organism Detected Laboratory Results 02/26/18 04:59 02/26/18 04:59 02/25/18 02/26/18 02/27/18 05:59 05:59 05:59 Intake Total 750 Output Total 1100 550 Balance -350 -550 PT 13.7 SEC (12.0-15.0) 02/26/18 04:59 INR 1.03 (0.83-1.16) 02/26/18 04:59 - Physical Exam Constitutional: no apparent distress, not in pain, chronically ill appearing, cachectic, No uncomfortable Ears, Nose, Mouth, Throat: no oral mucosal ulcers, No oral thrush Cardiovascular: systolic murmur (I/ at sternum), No irregularly irregular, No tachycardia, No edema Respiratory: no respiratory distress, no rales or rhonchi, clear to auscultation , other (crackles clear w/ cough) Gastrointestinal: normoactive bowel sounds, soft, non-tender abdomen, no palpable masses, No distension Skin: other (no erythema/induration/tenderness/swelling around port site) Neurologic: AAOx3 Psychiatric: interacting appropriately, not anxious, not encephalopathic, thought process linear ICD10 Worksheet Patient Problems: Problems Problem Status Onset Femoral neck fracture Acute Neutropenic fever Acute
[2018-02-26] MEDS: ACETAMINOPHEN 325 MG TAB PO PRN (20:54)
[2018-02-26] MEDS: LORazepam 0.5 MG TAB PO PRN (20:54)
[2018-02-27] MEDS: NS 1,000 ML IV SCH (02:58)
[2018-02-27 04:21] LABS: PLATELET COUNT 45 10^3/uL (150-400)
[2018-02-27] MEDS: CEFEPIME HCL 1 GM in STERILE WATER INJ 11.3 ML IV SCH ×3 (05:08→21:23)
[2018-02-27] MEDS: FLUTICASONE NASAL 120 SPRAYS/16 GM MDI EACHNARE SCH (08:47)
[2018-02-27] MEDS: MAGNESIUM OXIDE 400 MG TAB PO SCH (08:49)
[2018-02-27] MEDS: CHOLECALCIFEROL VIT D3 1,000 UNITS TAB PO SCH (08:49)
[2018-02-27] MEDS: SENNOSIDES/DOCUSATE SODIUM TAB PO SCH (08:50)
[2018-02-27] MEDS: CETIRIZINE 10 MG TAB PO SCH (08:50)
[2018-02-27] MEDS: VITAMIN B COMPLEX 1 EA CAP/TAB PO SCH (08:50)
[2018-02-27] MEDS ORDERED: Herbals/Supplements -Info Only PO SCH (09:00)
[2018-02-27] MEDS ORDERED: NON-FORMULARY NEW DRUG (Loratadine [Claritin 10 Mg] 10 MG) PO SCH (09:00)
--- NOTE | 2018-02-27 10:35 | SOAPPROG ---
SOAP Progress Note Assessment/Plan: Assessment: - pancytopenia due to chemo - neutropenic fever - no source yet - metastatic uterine sarcoma - s/p 5th cycle of dox/olara Patient is afebrile today but remains profoundly neutropenic with ANC of 20. Plts are on the way down also. Hgb ok at 9.2. Cultures are negative so far. We need to continue her IV antibiotics. She is due for re-eval at [facility] in the next few weeks. Plan: IV ABx monitor counts no txn needed today Subjective: No complaints today. Bored. Anxious to go home but understands need for current hospitalization. Objective: Vital Signs Temp Pulse Resp BP Pulse Ox 36.9 C 87 15 112/54 L 94 02/27/18 08:54 02/27/18 08:54 02/27/18 08:54 02/27/18 08:54 02/27/18 08:54 Microbiology 02/26/18 15:25 Respiratory Panel (PCR) - Final Nasal, Sinus - Anaerobic Tube/Swab No Organism Detected Laboratory Results 02/27/18 04:10 02/26/18 04:59 02/25/18 02/26/18 02/27/18 23:59 23:59 23:59 Intake Total 1750 900 Output Total 300 3050 600 Balance -300 -1300 300 PT 13.7 SEC (12.0-15.0) 02/26/18 04:59 INR 1.03 (0.83-1.16) 02/26/18 04:59 Physical Exam - Physical Exam General Appearance: alert, no apparent distress Respiratory: lungs clear Cardiac/Chest: regular rate, rhythm Abdomen: normal bowel sounds, non-tender, soft Extremities: No swelling Neuro/Psych: alert, normal mood/affect, oriented x 3 ICD10 Worksheet Patient Problems: Problems Problem Status Onset Neutropenic fever Acute Femoral neck fracture Acute
--- NOTE | 2018-02-27 16:48 | HOSPPROG ---
Hospitalist Progress Note Assessment/Plan: * Neutropenic fever -patient reports recurrence of fever last night but none documented -continue IV Cefepime, may need further w/u if recurrence of fever * Pancytopenia due to chemo -monitor CBC * Metastatic uterine sarcoma Subjective: States had fever last night. Took tylenol prophlactically for comfort. Objective: Vital Signs Temp Pulse Resp BP Pulse Ox 36.8 C 96 16 110/58 L 96 02/27/18 15:23 02/27/18 15:23 02/27/18 15:23 02/27/18 15:23 02/27/18 15:23 Microbiology 02/26/18 15:25 Respiratory Panel (PCR) - Final Nasal, Sinus - Anaerobic Tube/Swab No Organism Detected Laboratory Results 02/27/18 04:10 02/26/18 04:59 02/26/18 02/27/18 02/28/18 05:59 05:59 05:59 Intake Total 750 1900 Output Total 1100 2850 Balance -350 -950 PT 13.7 SEC (12.0-15.0) 02/26/18 04:59 INR 1.03 (0.83-1.16) 02/26/18 04:59 - Physical Exam Constitutional: no apparent distress, appears nourished, not in pain Cardiovascular: regular rate and rhythym, no murmur, rub, or gallop Respiratory: no respiratory distress, no rales or rhonchi, clear to auscultation Gastrointestinal: normoactive bowel sounds, soft, non-tender abdomen, no palpable masses Skin: no rashes or abrasions, no fluctuance, no induration Neurologic: AAOx3, sensation intact bilaterally Psychiatric: interacting appropriately, not anxious, not encephalopathic, thought process linear ICD10 Worksheet Patient Problems: Problems Problem Status Onset Neutropenic fever Acute Femoral neck fracture Acute
[2018-02-27] MEDS: LORazepam 0.5 MG TAB PO PRN (21:23)
[2018-02-28] MEDS: CEFEPIME HCL 1 GM in STERILE WATER INJ 11.3 ML IV SCH ×3 (05:16→21:08)
[2018-02-28 05:56] LABS: PLATELET COUNT 49 10^3/uL (150-400)
[2018-02-28] MEDS: VITAMIN B COMPLEX 1 EA CAP/TAB PO SCH (09:16)
[2018-02-28] MEDS: CETIRIZINE 10 MG TAB PO SCH (09:16)
[2018-02-28] MEDS: CHOLECALCIFEROL VIT D3 1,000 UNITS TAB PO SCH (09:16)
[2018-02-28] MEDS: FLUTICASONE NASAL 120 SPRAYS/16 GM MDI EACHNARE SCH (09:19)
[2018-02-28] MEDS: SENNOSIDES/DOCUSATE SODIUM TAB PO PRN (09:42)
--- NOTE | 2018-02-28 12:39 | SOAPPROG ---
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 Patient is afebrile today but remains profoundly neutropenic with ANC of 10. Plts are up slightly at 49K. Hgb ok at 9.0. Cultures are negative so far. We need to continue her IV antibiotics. She is due for re-eval at [facility] with scans on 05 MAR 2018. Plan: IV ABx monitor counts add Zarxio no txn needed today Subjective: Anxious to go home. Concerned about side effects of Zarxio. Hopes to be able to get her scans done at [facility] on Thursday. Objective: Vital Signs Temp Pulse Resp BP Pulse Ox 36.7 C 84 16 105/72 95 02/28/18 09:04 02/28/18 09:04 02/28/18 09:04 02/28/18 09:04 02/28/18 09:04 Laboratory Results 02/28/18 05:15 02/26/18 04:59 02/26/18 02/27/18 02/28/18 23:59 23:59 23:59 Intake Total 1750 1746 350 Output Total 3050 1600 1400 Balance -1300 146 -1050 PT 13.7 SEC (12.0-15.0) 02/26/18 04:59 INR 1.03 (0.83-1.16) 02/26/18 04:59 Physical Exam - Physical Exam General Appearance: alert Respiratory: lungs clear Cardiac/Chest: regular rate, rhythm Abdomen: normal bowel sounds Neuro/Psych: no motor/sensory deficits, alert, normal mood/affect, oriented x 3 ICD10 Worksheet Patient Problems: Problems Problem Status Onset Neutropenic fever Acute Femoral neck fracture Acute
[2018-02-28] MEDS: FILGRASTIM-SNDZ 300 MCG/0.5 ML SYR SC SCH (14:43)
--- NOTE | 2018-02-28 17:17 | HOSPPROG ---
Hospitalist Progress Note Assessment/Plan: The patient is a 67-year-old female with PMH metastatic uterine sarcoma who was admitted for neutropenic fever. ASSESSMENT/PLAN: Pancytopenia Neutropenic fever without infectious source Stage IV uterine sarcoma, s/p 5th cycle chemoTx -airborne precautions -Monitor CBC. -Given filgastrim today -Blood Cx negative for growth -IV Abx. -Pt due for CT scan on Thursday (likely to be DC'd by then) VTE prophylaxis: SCDs Code Status: Full code Status: Inpatient for greater than 2 midnight stay. Disposition: Med surge with discharge not anticipated in the next 48 hr. This patient is new to me. Reviewed patient's chart/records for this visit. ____ Subjective: Today the patient feels okay. No new pain. Her temperature went up to 100.3 last night but quickly went down to normal. Objective: Vital Signs Temp Pulse Resp BP Pulse Ox 36.7 C 84 16 94/52 L 96 02/28/18 16:02 02/28/18 16:02 02/28/18 16:02 02/28/18 16:02 02/28/18 16:02 Laboratory Results 02/28/18 05:15 02/26/18 04:59 02/27/18 02/28/18 03/01/18 05:59 05:59 05:59 Intake Total 1900 1196 Output Total 2850 2400 Balance -950 -1204 PT 13.7 SEC (12.0-15.0) 02/26/18 04:59 INR 1.03 (0.83-1.16) 02/26/18 04:59 OBJECTIVE: Physical Exam: General: The patient is a thin female who is alert and in no acute distress. HEENT: normocephalic, extraocular movements intact, conjunctivae clear. Mucous membranes moist. Neck: trachea midline, no visible masses. Abd: soft and nondistended. Musculoskeletal: Reduced muscle tone/bulk. Neuro: cranial nerves II XII grossly intact. Intact gross motor and sensory function. Psych: Appropriate mood and appropriate affect. Skin: + pallor. No petechiae. Heme/lymph: No peripheral edema at bilateral ankles. Labs/Imaging/Other Tests: Personally reviewed/interpreted. ICD10 Worksheet Patient Problems: Problems Problem Status Onset Neutropenic fever Acute Femoral neck fracture Acute
[2018-02-28] MEDS: LORazepam 0.5 MG TAB PO PRN (21:08)
[2018-03-01] MEDS: LORazepam 0.5 MG TAB PO PRN ×2 (03:58→21:19)
[2018-03-01] MEDS: CEFEPIME HCL 1 GM in STERILE WATER INJ 11.3 ML IV SCH ×3 (05:30→21:20)
[2018-03-01 06:27] LABS: PLATELET COUNT 70 10^3/uL (150-400)
[2018-03-01] MEDS: CHOLECALCIFEROL VIT D3 1,000 UNITS TAB PO SCH (09:16)
[2018-03-01] MEDS: VITAMIN B COMPLEX 1 EA CAP/TAB PO SCH (09:17)
[2018-03-01] MEDS: CETIRIZINE 10 MG TAB PO SCH (09:17)
[2018-03-01] MEDS: FLUTICASONE NASAL 120 SPRAYS/16 GM MDI EACHNARE SCH (09:18)
[2018-03-01] MEDS: SENNOSIDES/DOCUSATE SODIUM TAB PO PRN ×2 (09:28→17:12)
--- NOTE | 2018-03-01 12:32 | SOAPPROG ---
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 Plts are up Cultures are negative so far. We need to continue her IV antibiotics. She is due [place] [facility] [place] 05 [place]. Plan: IV ABx monitor counts add Zarxio no txn needed today 03/01/18 12:28 Subjective: Feels weak, mouth sore Objective: Vital Signs Temp Pulse Resp BP Pulse Ox 98.5 F 96 15 92/50 L 96 03/01/18 11:57 03/01/18 11:57 03/01/18 11:57 03/01/18 11:57 03/01/18 11:57 Laboratory Results 03/01/18 05:30 02/26/18 04:59 02/28/18 03/01/18 03/02/18 05:59 05:59 05:59 Intake Total 1196 511.3 Output Total 2400 2250 Balance -1204 -1738.7 PT 13.7 SEC (12.0-15.0) 02/26/18 04:59 INR 1.03 (0.83-1.16) 02/26/18 04:59 Physical Exam - Physical Exam General Appearance: alert, no apparent distress Respiratory: normal breath sounds Cardiac/Chest: regular rate, rhythm Abdomen: normal bowel sounds, non-tender ICD10 Worksheet Patient Problems: Problems Problem Status Onset Neutropenic fever Acute Femoral neck fracture Acute
--- NOTE | 2018-03-01 13:40 | HOSPPROG ---
Hospitalist Progress Note Assessment/Plan: The patient is a 67-year-old female with PMH metastatic uterine sarcoma who was admitted for neutropenic fever. 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 Disposition: likely dc in 1-2 days if counts improved and fever resolves Subjective: no significant overnight events, patient feeling weak/tired but no other change Objective: Vital Signs Temp Pulse Resp BP Pulse Ox 36.9 C 96 15 92/50 L 96 03/01/18 11:57 03/01/18 11:57 03/01/18 11:57 03/01/18 11:57 03/01/18 11:57 Laboratory Results 03/01/18 05:30 02/26/18 04:59 02/28/18 03/01/18 03/02/18 05:59 05:59 05:59 Intake Total 1196 511.3 Output Total 2400 2250 Balance -1204 -1738.7 PT 13.7 SEC (12.0-15.0) 02/26/18 04:59 INR 1.03 (0.83-1.16) 02/26/18 04:59 awake alert chronically ill appearing anicteric op clear rrr no mrg cta b soft nt nd no cce warm dry oriented appropriate ICD10 Worksheet Patient Problems: Problems Problem Status Onset Femoral neck fracture Acute Neutropenic fever Acute
[2018-03-01] MEDS: FILGRASTIM-SNDZ 300 MCG/0.5 ML SYR SC SCH (14:10)
--- NOTE | 2018-03-01 14:26 | ASMTCMCOM ---
CM Note CM Note Notes: Chart reviewed. Per MD notes remains weak and neutropenic. Has c/o mouth sores. No therapies ordered. Patient hopeful to dc by 03/04 as she has scans ordered for03/05/2018. CM to follow. Plan: Home with family support when medically cleared for discharge to home. Date Signed: 03/01/2018 02:26 PM Electronically Signed By:Anna Marie Fong RN
--- NOTE | 2018-03-01 14:59 | ASMTCMCOM ---
CM Note CM Note Notes: Patient request records be sent to Dr. Bartholomew who is an oncologist at [facility] . HIPPA form signed. Fax number provided by patient. Date Signed: 03/01/2018 02:58 PM Electronically Signed By:Anna Marie Fong RN
[2018-03-01] MEDS ORDERED: NS BOLUS 1000 ML (Wide open) IV ONE (16:00)
--- NOTE | 2018-03-01 16:30 | ASMTCMCOM ---
CM Note CM Note Notes: Records faxed, confirmed reciept, copies of documents to patient. Date Signed: 03/01/2018 04:30 PM Electronically Signed By:Anna Marie Fong RN
[2018-03-01] MEDS: ACETAMINOPHEN 325 MG TAB PO PRN (21:19)
[2018-03-02] MEDS: CEFEPIME HCL 1 GM in STERILE WATER INJ 11.3 ML IV SCH (05:50)
[2018-03-02 06:27] LABS: PLATELET COUNT 101 10^3/uL (150-400)
[2018-03-02] MEDS: CETIRIZINE 10 MG TAB PO SCH (08:51)
[2018-03-02] MEDS: VITAMIN B COMPLEX 1 EA CAP/TAB PO SCH (08:52)
[2018-03-02] MEDS: CHOLECALCIFEROL VIT D3 1,000 UNITS TAB PO SCH (08:52)
[2018-03-02] MEDS: SENNOSIDES/DOCUSATE SODIUM TAB PO PRN (08:52)
[2018-03-02] MEDS: FLUTICASONE NASAL 120 SPRAYS/16 GM MDI EACHNARE SCH (08:54)
--- NOTE | 2018-03-02 10:17 | PDDCSUM ---
Discharge Summary Discharge Summary: Dates of service 02/25-03/02/18 Consultations: oncology Procedures performed: none Hospital course by problem: The patient is a 67-year-old female with PMH metastatic uterine sarcoma who was admitted for neutropenic fever. 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 Shannon as scheduled > 35 min spent in dc more than half in coordination of care
--- NOTE | 2018-03-02 10:18 | SOAPPROG ---
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 Patient is afebrile today ,anc .39 Plan: I think ok for d/c today, will give one more gcsf and plan on 3 days po levaquin, check cbc in clinic tomorrow, if more phillip would give prophylactic gcsf 03/01/18 12:28 03/02/18 10:15 Subjective: Feels well Objective: Vital Signs Temp Pulse Resp BP Pulse Ox 97.8 F 92 12 92/58 L 95 03/02/18 08:23 03/02/18 08:23 03/02/18 08:23 03/02/18 08:23 03/02/18 08:23 Laboratory Results 03/02/18 05:55 02/26/18 04:59 03/01/18 03/02/18 03/03/18 05:59 05:59 05:59 Intake Total 511.3 1601.3 Output Total 2250 1900 Balance -1738.7 -298.7 PT 13.7 SEC (12.0-15.0) 02/26/18 04:59 INR 1.03 (0.83-1.16) 02/26/18 04:59 Physical Exam - Physical Exam General Appearance: alert, no apparent distress Respiratory: lungs clear, normal breath sounds Cardiac/Chest: regular rate, rhythm Abdomen: normal bowel sounds, non-tender Skin: other (left chest port ok) ICD10 Worksheet Patient Problems: Problems Problem Status Onset Neutropenic fever Acute Femoral neck fracture Acute
--- NOTE | 2018-03-02 10:36 | ASMTLACE ---
LACE Length of stay for Answers: 4-6 days current admission Acuity / Level of Answers: Yes Care: Did the patient have an inpatient admission? Comorbidities - select Answers: Any tumor (including all that apply lymphoma or leukemia) # of Emergency department Answers: 1-2 visits in the last 6 months Score: 10 Date Signed: 03/02/2018 10:35 AM Electronically Signed By:Anna Marie Fong RN
--- NOTE | 2018-03-02 10:40 | ASMTCMCOM ---
CM Note CM Note Notes: Chart reviewed. Per oncology and hospitalist medically cleared for discharge to home today. No current needs identified. CM available should needs arise. Plan: Home Independently with family support. Date Signed: 03/02/2018 10:39 AM Electronically Signed By:Anna Marie Fong RN
[2018-03-02 11:55] VITALS: BP 94/52
[2018-03-02] MEDS: FILGRASTIM-SNDZ 300 MCG/0.5 ML SYR SC SCH (12:04)
== END 2018-03-02 13:20 | disposition home or self-care (01) | DRG 809 ==
LOC: OBSVTOIN 22:13 → F1N 23:13
PROVIDERS: ADMIT Family Medicine; ATTEND Family Medicine
DX: D70.1 Agranulocytosis secondary to cancer chemotherapy (principal); T45.1X5A Adverse effect of antineoplastic and immunosuppressive drugs, initial encounter; C78.7 Secondary malignant neoplasm of liver and intrahepatic bile duct; Z85.42 Personal history of malignant neoplasm of other parts of uterus; Z85.3 Personal history of malignant neoplasm of breast; Z92.3 Personal history of irradiation; K21.9 Gastro-esophageal reflux disease without esophagitis; M81.0 Age-related osteoporosis without current pathological fracture
CPT/HCPCS: 96374; J0692; J1642; J2060; Q5101

== ENCOUNTER 2018-03-17 09:54 | Emergency (ER) | payer OTHER, MEDICARE ==
--- NOTE | 2018-03-17 10:27 | EDPHY ---
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 The patient started chemotherapy in October 2017, but stopped on 02/23/18 as the chemotherapy (doxorubicin and olaratumab) was not working. She is expected to start a new chemotherapy regimen soon. On 02/25/18, 3 weeks ago the patient was admitted to this hospital for a neutropenic fever. After eating dinner last night, she developed a sharp upper abdominal pain. This pain did not improve and lasted all night. This morning the pain began to gradually decrease, but there is still pain when she presses on her upper abdomen. She was able to eat this morning and had a bowel movement. While urinating she felt like she was unable to empty her bladder as it caused abdominal pain. Currently she is still having upper abdominal pain and feels like she is unable to take a deep breath as it causes pain in her lower anterior neck. Denies history of DVT or PE. Takes marijuana pills for sleeping; denies alcohol or tobacco use. No fever, chills, chest pain, palpitations, vomiting, diarrhea, urinary complaints, headache, lightheadedness. REVIEW OF SYSTEMS: Aside from elements discussed in the HPI, a comprehensive 10-point review of systems was reviewed and is negative. 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 Family History: Mother-CHF in hypertension; brother-CAD/[place]. No family members with history of cancer. SOCIAL HISTORY: at bedside, lives in [place], retired VITAL SIGNS: Reviewed by me GENERAL: Thin, not jaundiced, pleasant, resting comfortably in no respiratory distress. HEENT: Atraumatic. Eyes: No icterus, no injection. Mouth: moist mucous membranes. No erythema or lesions. Neck: supple with no adenopathy. LUNGS: Clear to auscultation bilaterally, no wheezes, rhonchi or rales. CARDIAC: Regular rate and rhythm, no rubs, murmurs or gallops. ABDOMEN: Severe right upper quadrant and epigastric tenderness with localized guarding, no other peritoneal signs. Soft, nondistended, bowel sounds normal. BACK: No CVA tenderness. EXTREMITIES: No trauma. No edema. Range of motion is normal throughout. NEURO: Alert and oriented, grossly nonfocal. SKIN: Warm and dry, no rash. PSYCHIATRIC: Normal mentation, no agitation. Portions of this note were transcribed by a biomedical analytical scientist. I personally performed a history, physical exam, medical decision making, and confirmed accuracy of information the transcribed note. 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 On exam she has severe right upper quadrant and epigastric tenderness with localized guarding; there are no other peritoneal signs and she is not jaundiced. Labs and abdominopelvic CT ordered. She is currently denying pain medications. 1315: I spoke with Dr. Yoo, radiologist, who reports that the patient has increasing metastases to her liver. There is one necrotic metastasis which could be the source of her pain-- this is in comparison to CT scan of Oct 2017. 1350: Reassessed patient and discussed laboratory and imaging findings. At this time she would like to return home and follow up with her oncologist. I was unable to consult with her oncologist prior to discharge. I have prescribed her Tramadol for her pain. Return precautions provided; patient is comfortable with this plan. - Data Points Imaging Results: CT Abd Pelvis: Impression: 1. Diffuse hepatic metastasis increased in size and number since October 2017. 2. Largest metastasis in the left lobe is necrotic measuring 5.7 x 5.2 cm, previously measuring 4.2 x 4 cm. 3. Constipation. 4. No bowel obstruction, ascites, or significant retroperitoneal adenopathy. Findings and recommendations discussed with Emergency Department physician, Dr. Geovanna Isaac at 1327 hours on March 17, 2018. Final report concurs with initial preliminary interpretation. Dictated By: Deni Yoo Imaging: Discussed imaging studies w/ call center director Radiologist, I viewed and interpreted images myself Laboratory Results: Laboratory Results 03/17/18 11:30 03/17/18 11:30 Medications Given: Discontinued Medications Tetracaine/Epinephrine/Lidocaine (Let Gel Topical) 1 ea TP EDNOW ONE Stop: 03/17/18 11:46 Last Admin: 03/17/18 13:28 Dose: 1 ea General Time Seen by Provider: 03/17/18 10:25 Initial Vital Signs: Initial Vital Signs Temperature (C) 36.6 C 03/17/18 09:59 Heart Rate 86 03/17/18 09:59 Respiratory Rate 17 03/17/18 09:59 Blood Pressure 98/65 L 03/17/18 09:59 O2 Sat (%) 97 03/17/18 09:59 O2 Delivery Mode Room Air Allergies/Adverse Reactions: codeine Allergy (Verified 03/17/18 09:57) diphenhydramine [From Benadryl] Allergy (Verified 03/17/18 09:57) Home Medications: Medication Instructions Recorded Herbals/Supplements -Info Only 1 ea PO DAILY 06/30/15 Vitamin B Complex [B Complex] 1 tab PO DAILY 06/30/15 Cholecalciferol Vit D3 [Vitamin D3 5,000 units PO DAILY #0 tab 07/02/15 (*)] Fluticasone Nasal [Flonase Nasal 1 spray EACHNARE DAILY 02/26/18 [place]] Loratadine [Claritin 10 mg] 10 mg PO DAILY 02/26/18 Melatonin [Melatonin 3 MG (*)] 9 mg PO HS PRN tab 03/02/18 Sennosides/Docusate Sodium 1 - 2 tab PO BID PRN tab 03/02/18 [Senokot-S] traMADol [Ultram 50 mg (*)] 50 mg PO Q4 #30 tab 03/17/18 Departure - Departure Disposition: Home, Routine, Self-Care Clinical Impression: Liver metastases, Abdominal pain Condition: Good Instructions: Acute Abdominal Pain (ED) Additional Instructions: Take Tramadol as prescribed. Contact your physician if you need more medication as the pain is not controlled with Tramadol. Follow up with your oncologist as soon as possible. Return to the Emergency Department for fever, chest pain, shortness of breath, urinary or bowel complaints, increasing pain or other worsening of condition. Referrals: Maryellen Cardenas MD [Primary Care Provider] - As per Instructions Prescriptions: traMADol [Ultram 50 mg (*)] 50 mg PO Q4 #30 tab Report Scribed for: Geovanna Isaac Report Scribed by: Halley Corona Date of Report: 03/17/18 Time of Report: 10:26
[2018-03-17] MEDS ORDERED: LIDOCAINE/PRILOCAINE 1 EACH CRTUBE TP ONE (10:52)
[2018-03-17] MEDS ORDERED: LET GEL TOPICAL 1 EA SYR TP ONE ×2 (10:53→11:45)
[2018-03-17 11:45] LABS: PLATELET COUNT 246 10^3/uL (150-400)
[2018-03-17 11:54] LABS: INR 1.05 (0.83-1.16); PROTIME(PATIENT) 13.9 SEC (12.0-15.0)
[2018-03-17] MEDS ORDERED: IOPAMIDOL (ISOVUE-300) 100 ML BTL ONE (12:21)
[2018-03-17 14:21] VITALS: BP 109/76
== END 2018-03-17 14:16 | disposition home or self-care (01) ==
DX: C78.7 Secondary malignant neoplasm of liver and intrahepatic bile duct (principal); Z85.831 Personal history of malignant neoplasm of soft tissue; Z90.710 Acquired absence of both cervix and uterus
CPT/HCPCS: 74177; 99285; Q9967

== ENCOUNTER 2018-04-07 18:49 | Observation (INO) | payer OTHER, MEDICARE ==
[2018-04-07 20:00] LABS: PLATELET COUNT 81 10^3/uL (150-400)
--- NOTE | 2018-04-07 20:30 | EDPHY ---
HPI/HX/ROS/PE/MDM Narrative: CHIEF COMPLAINT: Fever HPI: This patient is a 67 year old female with history of leiomyosarcoma of the uterus. She arrives with her for evaluation of fever and fatigue. She has history of admission for neutropenic fever 02/25/18. One week ago, she started a new chemotherapy regimen. Today around 13:30, she began to feel exhausted and developed mild myalgias. She measured a fever around 101.2. Given her history of neutropenic fever, she presents for evaluation. She has an intermittent mild cough, but this is chronic for her. She endorses an odd sensation in her abdominal area which is usually relived with glass of electrolytes. Her at bedside notes she has not eaten much today. She endorses diarrhea. She denies vomiting, dysuria, or rash. The patient is followed by Dr. Román Bartholomew, oncologist, at [facility] in [place]. Her local oncologist is Dr. Shannon. REVIEW OF SYSTEMS: Aside from elements discussed in the HPI, a comprehensive 10-point review of systems was reviewed and is negative. PMH: Leiomyosarcoma, GERD, osteoporosis, liver cancer. Currently undergoing chemotherapy. S/p hysterectomy. Prior medical records reviewed including admission 02/25/18 for neutropenic fever. SOCIAL HISTORY: Nonsmoker. . at bedside. Lives in [place]. PHYSICAL EXAM: General:Patient is alert, in no acute distress. ENT:Eyes are normal to inspection. ENT inspection normal. Neck: Normal inspection. Full range of motion. Respiratory:No respiratory distress. Breath sounds normal bilaterally. Cardiovascular: Port in place on left chest. Regular rate and rhythm. Strong peripheral pulses. Normal cap refill. Abdomen:The abdomen is nontender to palpation. There are no peritoneal signs. There are normal bowel sounds. Back: Normal to inspection. No tenderness to palpation. Skin: Normal color. No rash. Warm and dry. Extremities: Normal appearance. Full range of motion. Neuro: Oriented x3. Normal motor function. Normal sensory function. ED Course: 67 y/o female with history of leiomyosarcoma, currently undergoing chemotherapy , presents with fever and fatigue. Plan for chest x-ray, labs including CBC, chemistries, UA, lactic acid, blood cultures. CXR negative for pneumonia. Reviewed laboratory studies. Patient is not currently neutropenic, WBC 5.2. Hct 29. UA negative for UTI. Discussed laboratory and imaging results with patient. Discussed plans for follow up or further workup including admission. The patient and her agree with admission for further evaluation at this time. 21:42 Consulted with hospitalist service. Dr. Cote accepts admission for fever. She concurs with the plan for no antibiotic administration at this time. - Data Points Imaging Results: Imaging Impressions Chest X-Ray 04/07/18 19:11 Impression: No definite pneumonia. Imaging: I viewed and interpreted images myself Laboratory Results: Laboratory Results 04/07/18 19:45 04/07/18 19:45 04/07/18 04/07/18 04/07/18 20:50 19:45 19:45 WBC 5.20 10^3/uL 10^3/uL (3.80-9.50) RBC 3.10 10^6/uL L 10^6/uL (4.18-5.33) Hgb 9.9 g/dL L g/dL (12.6-16.3) Hct 29.6 % L % (38.0-47.0) MCV 95.5 fL fL (81.5-99.8) MCH 31.9 pg pg (27.9-34.1) MCHC 33.4 g/dL g/dL (32.4-36.7) RDW 15.6 % H % (11.5-15.2) Plt Count 81 10^3/uL L 10^3/uL (150-400) MPV 9.2 fL fL (8.7-11.7) Neut % (Auto) 84.3 % H % (39.3-74.2) Lymph % (Auto) 13.1 % L % (15.0-45.0) Kay % (Auto) 1.0 % L % (4.5-13.0) Eos % (Auto) 1.0 % % (0.6-7.6) Baso % (Auto) 0.2 % L % (0.3-1.7) Nucleat RBC Rel Count 0.0 % % (0.0-0.2) Absolute Neuts (auto) 4.39 10^3/uL 10^3/uL (1.70-6.50) Absolute Lymphs (auto) 0.68 10^3/uL L 10^3/uL (1.00-3.00) Absolute Monos (auto) 0.05 10^3/uL L 10^3/uL (0.30-0.80) Absolute Eos (auto) 0.05 10^3/uL 10^3/uL (0.03-0.40) Absolute Basos (auto) 0.01 10^3/uL L 10^3/uL (0.02-0.10) Absolute Nucleated RBC 0.00 10^3/uL 10^3/uL (0-0.01) Immature Gran % 0.4 % % (0.0-1.1) Immature Gran # 0.02 10^3/uL 10^3/uL (0.00-0.10) VBG Lactic Acid Sodium 131 mEq/L L mEq/L (135-145) Potassium 4.0 mEq/L mEq/L (3.3-5.0) [place] 99 mEq/L mEq/L (97-110) Carbon Dioxide 24 mEq/l mEq/l (22-31) Anion Gap 8 mEq/L mEq/L (8-16) BUN 16 mg/dL mg/dL (7-23) Creatinine 0.5 mg/dL L mg/dL (0.6-1.0) Estimated GFR > 60 Glucose 121 mg/dL H mg/dL (70-100) Calcium 9.0 mg/dL mg/dL (8.5-10.4) Urine Color YELLOW Urine Appearance HAZY Urine pH 7.0 (5.0-7.5) Ur Specific Lee 1.006 (1.002-1.030) Urine Protein NEGATIVE (NEGATIVE) Urine Ketones NEGATIVE (NEGATIVE) Urine Blood NEGATIVE (NEGATIVE) Urine Nitrate NEGATIVE (NEGATIVE) Urine Bilirubin NEGATIVE (NEGATIVE) Urine Urobilinogen NEGATIVE EU EU (0.2-1.0) Ur Leukocyte Esterase NEGATIVE (NEGATIVE) Urine Glucose NEGATIVE (NEGATIVE) 04/07/18 19:45 WBC RBC Hgb Hct MCV MCH MCHC RDW Plt Count MPV Neut % (Auto) Lymph % (Auto) Kay % (Auto) Eos % (Auto) Baso % (Auto) Nucleat RBC Rel Count Absolute Neuts (auto) Absolute Lymphs (auto) Absolute Monos (auto) Absolute Eos (auto) Absolute Basos (auto) Absolute Nucleated RBC Immature Gran % Immature Gran # VBG Lactic Acid 1.1 mmol/L mmol/L (0.7-2.1) Sodium Potassium [place] Carbon Dioxide Anion Gap BUN Creatinine Estimated GFR Glucose Calcium Urine Color Urine Appearance Urine pH Ur Specific Lee Urine Protein Urine Ketones Urine Blood Urine Nitrate Urine Bilirubin Urine Urobilinogen Ur Leukocyte Esterase Urine Glucose Medications Given: Acetaminophen (Tylenol) 650 mg PO Q4HRS PRN PRN Reason: Pain, Mild/Fever, Can Take PO Stop: 10/04/18 22:59 Last Admin: 04/07/18 23:34 Dose: 650 mg Lorazepam (Ativan) 0.5 - 1 mg PO Q8HRS PRN PRN Reason: Anxiety, Able to Take PO Stop: 10/04/18 22:59 Last Admin: 04/07/18 23:32 Dose: 1 mg General Time Seen by Provider: 04/07/18 19:10 Initial Vital Signs: Initial Vital Signs Temperature (C) 38.1 C 04/07/18 18:53 Heart Rate 117 H 04/07/18 18:53 Respiratory Rate 16 04/07/18 18:53 Blood Pressure 129/57 H 04/07/18 18:53 O2 Sat (%) 96 04/07/18 18:53 O2 Delivery Mode Room Air Allergies/Adverse Reactions: codeine Allergy (Verified 03/17/18 09:57) diphenhydramine [From Benadryl] Allergy (Verified 03/17/18 09:57) Home Medications: Medication Instructions Recorded Herbals/Supplements -Info Only 1 ea PO DAILY 06/30/15 Vitamin B Complex [B Complex] 1 tab PO DAILY 06/30/15 Fluticasone Nasal [Flonase Nasal 1 spray EACHNARE DAILY PRN 02/26/18 [place]] Loratadine [Claritin 10 mg] 10 mg PO DAILY 02/26/18 Melatonin [Melatonin 3 MG (*)] 9 mg PO HS PRN tab 03/02/18 Sennosides/Docusate Sodium 1 - 2 tab PO BID PRN tab 03/02/18 [Senokot-S] Cholecalciferol Vit D3 [Vitamin D3 4,000 units PO DAILY 04/07/18 (*)] LORazepam [Ativan (*)] 1 mg PO DAILY PRN 04/07/18 Departure - Departure Disposition: [facility] Inpatient Acute Clinical Impression: Fever Qualifiers: Fever type: unspecified Qualified Code(s): R50.9 - Fever, unspecified Uterine cancer Qualifiers: Malignant neoplasm of uterus location: unspecified site of uterus Qualified Code(s): C55 - Malignant neoplasm of uterus, part unspecified Condition: Fair Report Scribed for: Norman Anderson Report Scribed by: Stephani Brooke Date of Report: 04/07/18 Time of Report: 23:09 Physician Review and Approval Statement: Portions of this note were transcribed by an ED scribe. I personally performed the history, physical exam, and medical decision making; and confirm the accuracy of the information in the transcribed note.
[2018-04-07] MEDS ORDERED: ACETAMINOPHEN 325 MG TAB PO PRN (23:00)
[2018-04-07] MEDS ORDERED: ONDANSETRON 4 MG/2 ML VIAL IVP PRN (23:00)
[2018-04-07] MEDS ORDERED: NS 1,000 ML IV SCH (23:00)
[2018-04-07] MEDS ORDERED: LORazepam 0.5 MG TAB PO PRN (23:00)
[2018-04-07] MEDS ORDERED: HYDROCODONE/APAP 5/325 TAB PO PRN (23:00)
[2018-04-08] MEDS ORDERED: LACTULOSE 20 GM/30 ML UDCUP PO PRN (02:52)
[2018-04-08] MEDS ORDERED: MAGNESIUM HYDROXIDE 30 ML UDCUP PO PRN (02:52)
[2018-04-08] MEDS ORDERED: POLYETHYLENE GLYCOL 3350 17 GM PKT PO PRN (02:52)
[2018-04-08] MEDS ORDERED: BISACODYL 10 MG SUPP PR PRN (02:52)
[2018-04-08 05:16] LABS: PLATELET COUNT 79 10^3/uL (150-400)
--- NOTE | 2018-04-08 08:08 | PDGENHP ---
History and Physical - Chief Complaint Fever and abdominal pain - History of Present Illness Source-patient provides history appears reliable. EMR was reviewed and case discussed with accepting hospitalist provider. 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 On patient reports that she had a few episodes of watery diarrhea without any melena or hematochezia. Patient did receive chemotherapy on 03/29 and 04 05. Patient reports overall history of constipation which for which she has been taking senna and Colace. She reports abdominal pain the right abdominal a right upper abdomen. She denies any nausea or vomiting. She reports her pain was achy constant 04/06 when she 1st arrived. Her abdominal pain is resolved at time of my interview. She denies any abdominal distension. Her last BM was at 6:00 p.m. Before arrival. History Information - Allergies/Home Medication List Allergies/Adverse Reactions: codeine Allergy (Verified 03/17/18 09:57) diphenhydramine [From Benadryl] Allergy (Verified 03/17/18 09:57) Home Medications: Herbals/Supplements -Info Only 1 ea PO DAILY 06/30/15 [Last Taken 04/07/18] Vitamin B Complex [B Complex] 1 tab PO DAILY 06/30/15 [Last Taken 04/07/18] Fluticasone Nasal [Flonase Nasal [place]] 1 spray EACHNARE DAILY PRN 02/26/18 [ Last Taken 04/07/18] Loratadine [Claritin 10 mg] 10 mg PO DAILY 02/26/18 [Last Taken 04/07/18] Cholecalciferol Vit D3 [Vitamin D3 (*)] 4,000 units PO DAILY 04/07/18 [Last Taken 04/07/18] LORazepam [Ativan (*)] 1 mg PO DAILY PRN 04/07/18 [Last Taken 04/06/18] I have personally reviewed and updated: family history, medical history, social history, surgical history - Past Medical History Additional medical history: 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 History of neutropenic fever. - Surgical History Additional surgical history: Power port placement the left. Hysterectomy. Tumor resection off of the bowel 10/19/2017. Left femur fracture repair. Right breast surgery. - Family History Additional family history: Mother-CHF, AFib in HTN. Father-cardiac history unspecified. Brother-CAD/AL. No family members with history of cancer. - Social History Smoking Status: Never smoked Alcohol Use: None Drug Use: Marijuana (Occasional at doubles.) Additional social history: Patient is lives with her . Cor status-full. Review of Systems Review of Systems: ROS: 10pt was reviewed & negative except for what was stated in HPI & below Constitutional: Reports: chills, fever, malaise, weakness (Generalized weakness) , weight loss, other (Significant fatigue) EENMT: Denies: blurred vision, nose congestion, sore throat Cardiac: Reports: no symptoms Respiratory: Reports: shortness of breath (Dyspnea on exertion). Denies: cough , orthopnea, wheezing Gastrointestinal: Reports: abdominal pain (Right abdomen), constipation ( Overall history of constipation), diarrhea (Recent diarrheal episodes). Denies : black stools, rectal bleeding, abdominal distention, nausea Genitourinary: Reports: no symptoms Muscolosketal: Reports: no symptoms Skin: Reports: no symptoms Neurological: Reports: no symptoms Hematologic/Lymphatic: Reports: no symptoms Physical Exam Physical Exam: Selected Entries 02/25/18 04/07/18 19:51 18:53 Blood Pressure Automatic Automatic Method Heart Rate 106 H 117 H Respiratory 18 16 Rate O2 Sat (%) 96 96 Temperature (C) 37.5 C 38.1 C Blood Pressure 122/60 H 129/57 H Mean Arterial 80 81 Pressure (MAP) O2 Delivery Room Air Room Air Mode Temperature Oral Oral Source Temp Pulse Resp BP Pulse Ox 36.6 C 82 16 95/53 L 97 04/08/18 04:59 04/08/18 04:59 04/08/18 04:59 04/08/18 04:59 04/08/18 04:59 Constitutional: cachectic, other (No acute distress. Pleasant frail thin adult female is lying quietly in bed.), No chronically ill appearing Eyes: PERRL, anicteric sclera, EOMI, No scleral injection Ears, Nose, Mouth, Throat: no oral mucosal ulcers, dry mucous membranes, other ( No nasal discharge.), No poor dentition Cardiovascular: regular rate and rhythym, no murmur, rub, or gallop, pulses symmetric bilaterally, No edema Peripheral Pulses: 1+: dorsalis-pedis (R), dorsalis-pedis (L) Respiratory: no respiratory distress, clear to auscultation, reduced air movement (Decreased inspiratory effort), No expiratory wheeze, No inspiratory crackles, No respiratory distress Gastrointestinal: soft, non-tender abdomen, no palpable masses, other ( Hypoactive bowel sounds), No tenderness, No astorga's sign, No distension Genitourinary: no bladder tenderness, No aguillon in urethra Skin: warm, no rashes or abrasions, other (Pallor), No rash Musculoskeletal: generalized weakness (Generalized weakness. The patient is able to sit up independently. Moves all extremities.), No pain with ROM Neurologic: AAOx3, sensation intact bilaterally, other (Grossly nonfocal exam.) , No facial droop Psychiatric: interacting appropriately, not anxious, not encephalopathic, thought process linear, flat affect, other (Patient appears fatigued.) Lab Data & Imaging Review 04/08/18 05:00 04/08/18 05:00 WBC 4.64 10^3/uL (3.80-9.50) 04/08/18 05:00 RBC 2.84 10^6/uL (4.18-5.33) L 04/08/18 05:00 Hgb 9.1 g/dL (12.6-16.3) L 04/08/18 05:00 Hct 27.4 % (38.0-47.0) L 04/08/18 05:00 MCV 96.5 fL (81.5-99.8) 04/08/18 05:00 MCH 32.0 pg (27.9-34.1) 04/08/18 05:00 MCHC 33.2 g/dL (32.4-36.7) 04/08/18 05:00 RDW 15.6 % (11.5-15.2) H 04/08/18 05:00 Plt Count 79 10^3/uL (150-400) L 04/08/18 05:00 MPV 9.5 fL (8.7-11.7) 04/08/18 05:00 Neut % (Auto) 82.5 % (39.3-74.2) H 04/08/18 05:00 Lymph % (Auto) 15.1 % (15.0-45.0) 04/08/18 05:00 [place] % (Auto) 1.1 % (4.5-13.0) L 04/08/18 05:00 Eos % (Auto) 1.1 % (0.6-7.6) 04/08/18 05:00 Baso % (Auto) 0.0 % (0.3-1.7) L 04/08/18 05:00 Nucleat RBC Rel Count 0.0 % (0.0-0.2) 04/08/18 05:00 Absolute Neuts (auto) 3.83 10^3/uL (1.70-6.50) 04/08/18 05:00 Absolute Lymphs (auto) 0.70 10^3/uL (1.00-3.00) L 04/08/18 05:00 Absolute Monos (auto) 0.05 10^3/uL (0.30-0.80) L 04/08/18 05:00 Absolute Eos (auto) 0.05 10^3/uL (0.03-0.40) 04/08/18 05:00 Absolute Basos (auto) 0.00 10^3/uL (0.02-0.10) L 04/08/18 05:00 Absolute Nucleated RBC 0.00 10^3/uL (0-0.01) 04/08/18 05:00 Immature Gran % 0.2 % (0.0-1.1) 04/08/18 05:00 Immature Gran # 0.01 10^3/uL (0.00-0.10) 04/08/18 05:00 RBC/WBC/PLT Morphology TNP 04/08/18 05:00 Atypical Lymphocytes 1+ H 04/08/18 05:00 Platelet Estimate DECREASED (ADEQ) L 04/08/18 05:00 Hypochromasia 1+ H 04/08/18 05:00 VBG Lactic Acid 1.1 mmol/L (0.7-2.1) 04/07/18 19:45 Sodium 137 mEq/L (135-145) 04/08/18 05:00 Potassium 4.2 mEq/L (3.3-5.0) 04/08/18 05:00 Chloride 110 mEq/L (97-110) 04/08/18 05:00 Carbon Dioxide 26 mEq/l (22-31) 04/08/18 05:00 Anion Gap 1 mEq/L (8-16) L 04/08/18 05:00 BUN 12 mg/dL (7-23) 04/08/18 05:00 Creatinine 0.5 mg/dL (0.6-1.0) L 04/08/18 05:00 Estimated GFR > 60 04/08/18 05:00 Glucose 116 mg/dL (70-100) H 04/08/18 05:00 Calcium 8.7 mg/dL (8.5-10.4) 04/08/18 05:00 Total Bilirubin 0.5 mg/dL (0.1-1.4) 04/07/18 19:45 Conjugated Bilirubin 0.3 mg/dL (0.0-0.5) 04/07/18 19:45 Unconjugated Bilirubin 0.2 mg/dL (0.0-1.1) 04/07/18 19:45 AST 73 IU/L (14-46) H 04/07/18 19:45 ALT 112 IU/L (9-52) H 04/07/18 19:45 Alkaline Phosphatase 270 IU/L (38-126) H 04/07/18 19:45 Total Protein 6.5 g/dL (6.3-8.2) 04/07/18 19:45 Albumin 3.5 g/dL (3.5-5.0) 04/07/18 19:45 Urine Color YELLOW 04/07/18 20:50 Urine Appearance HAZY 04/07/18 20:50 Urine pH 7.0 (5.0-7.5) 04/07/18 20:50 Ur Specific [place] 1.006 (1.002-1.030) 04/07/18 20:50 Urine Protein NEGATIVE (NEGATIVE) 04/07/18 20:50 Urine Ketones NEGATIVE (NEGATIVE) 04/07/18 20:50 Urine Blood NEGATIVE (NEGATIVE) 04/07/18 20:50 Urine Nitrate NEGATIVE (NEGATIVE) 04/07/18 20:50 Urine Bilirubin NEGATIVE (NEGATIVE) 04/07/18 20:50 Urine Urobilinogen NEGATIVE EU (0.2-1.0) 04/07/18 20:50 Ur Leukocyte Esterase NEGATIVE (NEGATIVE) 04/07/18 20:50 Urine Glucose NEGATIVE (NEGATIVE) 04/07/18 20:50 Imaging Review: KUB obtained image was reviewed before report. Patient with increased bowel gas and dilated large bowel. Compared to CT abdomen pelvis from 03/17/2018 patient also with some prominent loops of bowel but no obstruction at that time. Assessment & Plan Assessment: Very pleasant 67-year-old female with history of metastatic uterine cancer who presents to the ED with complaints of fever and abdominal pain. #Fever (Acute) - etiology of patient's fever is unclear at this time. Her lactate is negative she does not need any sepsis criteria. She has 2 blood cultures that are pending. Her chest x-ray was clear. UA was unremarkable. Patient was complaining of some abdominal pain when she 1st arrived here however this has since resolved. She did report some loose diarrhea type stools without any blood in them. Will obtain a stool PCR if patient's sugars have additional episodes of diarrhea. No evidence of atelectasis on chest x- ray. Will hold off on antibiotic therapies for now the patient has not had any further fevers, weight cultures. Patient is not currently neutropenic and without leukocytosis. Will obtain a right upper quadrant abdominal ultrasound. A KUB was obtained after patient arrived to the floor which did show some slightly prominent loops of bowel. The patient had presented to the emergency department in February for similar symptoms a CT abdomen pelvis at that time was obtained and shows as similar findings. #Abdominal pain - patient's pain is currently resolved. Imaging studies as noted above. Right upper quadrant ultrasound is pending. Patient does have a history of metastatic disease to the liver. She states that this has been known for a while does not feel that this is related and has never had any pain related to this. Patient has at negative Astorga sign. She has prominent loops of bowel on imaging it could be a component of obstipation versus ileus versus developing obstruction. Bowel regimen has been ordered as patient has continued to pass gas and have diarrhea stools. Patient may require additional imaging with a repeat CT scan. #Uterine cancer (Acute) - oncology consultation in the morning as per day team. #Hyponatremia - mild likely component of dehydration. IV fluid supplementation and encourage oral intake. #Transaminitis-the patient with history of metastatic disease. Plan to continue monitor. #Anemia-in setting of chronic disease as well as the undergoing chemotherapy. Patient without any evidence of active bleeding at this time. #Thrombocytopenia-patient is status post chemotherapy will plan to continue monitor. No evidence of bleeding. FEN - IV fluid hydration overnight monitor electrolytes. Advance diet as tolerated. Cor status-full PPX-SCDs. Holding anticoagulation in the setting of thrombocytopenia and anemia. Disposition-patient admitted observation status at this time on the oncology floor. Blood cultures are pending and further evaluation of her abdominal pain is in process.
[2018-04-08] MEDS ORDERED: ENOXAPARIN 40 MG/0.4 ML SYR SC SCH (09:00)
[2018-04-08] MEDS: SENNOSIDES/DOCUSATE SODIUM TAB PO SCH ×2 (09:38→09:43)
[2018-04-08] MEDS ORDERED: MELATONIN 3 MG TAB PO PRN (15:05)
[2018-04-08] MEDS ORDERED: LORazepam 1 MG TAB PO PRN (15:05)
[2018-04-08] MEDS ORDERED: FLUTICASONE NASAL 120 SPRAYS/16 GM MDI EACHNARE PRN (15:05)
[2018-04-08] MEDS ORDERED: SENNOSIDES/DOCUSATE SODIUM TAB PO PRN (15:05)
[2018-04-08 16:19] VITALS: BP 110/47
--- NOTE | 2018-04-08 17:02 | ASMTCMCOM ---
CM Note CM Note Notes: Chart reviewed. Patient admitted with weakness and fever. New chemo initiated 1 week ago. Per OT patient at baseline. Lives independently with her . Needs TBD. Plan: TBD Date Signed: 04/08/2018 05:01 PM Electronically Signed By:Anna Marie Fong RN
--- NOTE | 2018-04-08 17:15 | PDDCSUM ---
Discharge Summary Discharge Summary: DISCHARGE DIAGNOSES: * fever of uncertain etiology, resolved * abdominal pain of uncertain etiology, resolved * 1 episode of loose stool, resolved * known metastatic leiomyosarcoma PROCEDURES: Abdominal ultrasound showing presence of previously known hepatic metastatic disease in the liver, no other new or concerning findings at this time HOSPITAL COURSE SUMMARY: This patient who has known metastatic leiomyosarcoma with original disease attached to bowel, current metastatic disease in the liver comes in with acute symptoms of right upper quadrant pain and fever. She states that she had had a couple of loose stools followed by onset of some fever and about a 30 min episode of crampy right upper quadrant pain. Since she has arrived here she has had normal stools and has had no further abdominal pain at all. She did have some temperature elevation to 38 degrees in the ER but has had normal temperature since then. She no nausea, no bleeding. There is no other symptom in the past few days or during her visit here. At this time she is eating well, ambulating in the hallway without difficulty, has stable vital signs. Her examination at this time is unremarkable other than poor nutritional status. Studies did include an abdominal x-ray with some mild nonspecific gas see a distention of bowel. There was an abdominal ultrasound which showed her known metastatic lesion in the liver which appears larger than on the last studies we have in our system here. GI pathogen panel did not show any viral or bacterial organism to explain her loose stool or fever. She did have chemotherapy about 12 days ago, and should be at her marcella White blood cell count at this time and she has white blood cell count 3000+ with neutrophils in good range. At this time the etiology of her presenting symptoms is unknown, though all of her symptoms and her fever appear to have resolved. I did consider the possibility of an infection that did not show up on her PCR pathogen panel, a partial or intermittent bowel obstruction, obstipation, among other diagnoses. I reviewed all of these with the patient in detail and discussed potential symptoms that could recur and what she should do in the setting of those recurrent symptoms. Most prominent is if she has recurring fevers over the next week she should have her white blood cell counts tested as she could develop neutropenia though she is not neutropenic and should be at very close to her marcella at this point. PENDING TEST RESULTS: None MEDICATION CHANGES: None FOLLOW-UP PLAN: Continue previously scheduled follow up with her oncology clinic in [place] She is aware that she should be seen with at a minimum white blood cell count testing if any recurrent fever over the next week, but may need further assessments if she is having ongoing fevers or other symptoms of illness. We have discussed the details of what kinds of symptoms she might expect and what kind of assessment she should seek for those symptoms Greater than 35 minutes bedside and care coordination time today
[2018-04-09] MEDS ORDERED: VITAMIN B COMPLEX 1 EA CAP/TAB PO SCH (09:00)
[2018-04-09] MEDS ORDERED: CETIRIZINE 10 MG TAB PO SCH (09:00)
[2018-04-09] MEDS ORDERED: CHOLECALCIFEROL VIT D3 1,000 UNITS TAB PO SCH (09:00)
== END 2018-04-08 18:00 | disposition home or self-care (01) ==
LOC: F1N 22:25
PROVIDERS: ADMIT Internal Medicine; ATTEND Internal Medicine
DX: C55 Malignant neoplasm of uterus, part unspecified (principal); T45.1X5A Adverse effect of antineoplastic and immunosuppressive drugs, initial encounter; R50.81 Fever presenting with conditions classified elsewhere; R19.7 Diarrhea, unspecified; D64.81 Anemia due to antineoplastic chemotherapy; D69.59 Other secondary thrombocytopenia; C78.7 Secondary malignant neoplasm of liver and intrahepatic bile duct; M81.0 Age-related osteoporosis without current pathological fracture; R63.6 Underweight; Z68.1 Body mass index [BMI] 19.9 or less, adult; R10.11 Right upper quadrant pain; K21.9 Gastro-esophageal reflux disease without esophagitis; E87.1 Hypo-osmolality and hyponatremia
CPT/HCPCS: 71046; 74018; 76705; 97165; G8987; G8988; G8989; J1642

== ENCOUNTER 2018-06-30 15:18 | Emergency (ER) | payer OTHER, MEDICARE ==
--- NOTE | 2018-06-30 16:00 | EDPHY ---
H & P Time Seen by Provider: 06/30/18 15:59 HPI/ROS: CHIEF COMPLAINT: Fever HISTORY OF PRESENT ILLNESS: Patient has leiomyosarcoma with metastases to her liver. She has [facility] by [facility]ome[facility], currently on gemcitabine and Taxotere last treatment was yesterday. Her white blood cell count yesterday was 15,000. She presents with about a week of chills for last 5 nights temperature up to 100.4 and a temperature last night of 101.2 but has not been febrile today. Of note she has a little bit of dry cough for the last 2 weeks but is not short of breath. No sore throat or earache, no dental symptoms, no vomiting, no abdominal pain. She had diarrhea last night because she was constipated and took a senna with her lorazepam and had a large bowel movement. This inflamed her rectum a little bit which she has been having trouble with fissures, no bleeding. REVIEW OF SYSTEMS: Eye: no change in vision ENT: no sore throat Cardiac: no chest pain or syncope Pulmonary: HPI Abdomen: HPI HPI Musculoskeletal: no back pain Skin: no rash Neuro: no headache Constitutional: HPI : no urinary symptoms A comprehensive 10 point review of systems is otherwise negative aside from elements mentioned in the history of present illness. PAST MEDICAL HISTORY: Metastatic leiomyosarcoma, GERD, osteoporosis Social history: Here with spouse General Appearance: Alert and conversant, cooperative. Eyes: No scleral icterus. ENT, Mouth: Normal mucous membranes. Normal pharynx, no gum swelling, no trismus. No facial swelling. Respiratory: Normal respiratory effort, breath sounds equal, lungs are clear to auscultation. Cardiovascular: Regular rate and rhythm. Tachycardic rate 118. Gastrointestinal: Abdomen is soft and non tender. Rectal exam shows some perirectal inflammation but no induration and no tenderness, no hemorrhoids. Neurological: Alert, face symmetric, normal motor and sensory in extremities. Skin: Warm and dry, no rashes. Specifically area around the port is clean dry and intact. She had area on her left heel that was getting red and swollen and tender but on inspection there are no open wounds is no lymphangitis and is only minimally red. Musculoskeletal: No peripheral edema. Psychiatric: Not agitated. Emergency Department course/MDM: Patient had CT scan on Thursday which showed disease in her liver but a clear chest. She refused chest x-ray today. Plan for EKG and CBC chemistry and urinalysis, call to her oncologist. 171: Discussed with Dr. Cruz for Dr. Bartholomew her oncologist at [facility]. Reviewed CT from last Thursday. Apparently had some right upper lung ground- glass or infiltrate findings on the CT done on Thursday. Recommendation of [facility] is to Treat based on equivocal RUL findings on CT on Thursday, for community-acquired pneumonia, Azithromycin and DC. Not neutropenic care. At this time after IV fluids heart rate is down below 100, discharge treat with azithromycin. Patient states understanding and agreement with this plan. Smoking Status: Never smoked Constitutional: Initial Vital Signs Temperature (C) 36.9 C 06/30/18 15:23 Heart Rate 118 H 06/30/18 15:23 Respiratory Rate 17 06/30/18 15:23 Blood Pressure 107/63 06/30/18 15:23 O2 Sat (%) 96 06/30/18 15:23 O2 Delivery Mode Room Air Allergies/Adverse Reactions: codeine Allergy (Verified 06/30/18 15:22) diphenhydramine [From Benadryl] Allergy (Verified 06/30/18 15:22) Home Medications: Medication Instructions Recorded Herbals/Supplements -Info Only 1 ea PO DAILY 06/30/15 Vitamin B Complex [B Complex] 1 tab PO DAILY 06/30/15 Fluticasone Nasal [Flonase Nasal 1 spray EACHNARE DAILY PRN 02/26/18 [place]] Loratadine [Claritin 10 mg] 10 mg PO DAILY 02/26/18 Melatonin [Melatonin 3 MG (*)] 9 mg PO HS PRN tab 03/02/18 Sennosides/Docusate Sodium 1 - 2 tab PO BID PRN tab 03/02/18 [Senokot-S] Cholecalciferol Vit D3 [Vitamin D3 4,000 units PO DAILY 04/07/18 (*)] LORazepam [Ativan (*)] 1 mg PO DAILY PRN 04/07/18 Azithromycin [Zithromax] 250 mg PO DAILY #4 tab 06/30/18 Gemzar 06/30/18 Olaratumab 06/30/18 TaxoTERE 06/30/18 Medical Decision Making - Diagnostics EKG Interpretation: 12-lead EKG interpreted by me; official reading is in computer system. My interpretation is sinus rhythm rate 94 no ischemic changes normal intervals Differential Diagnosis: Differential for fever considered including but not limited to neutropenic fever , UTI, bacteremia, pneumonia, ENT infection. - Data Points Laboratory Results: Laboratory Results 06/30/18 16:50 06/30/18 16:50 06/30/18 06/30/18 06/30/18 16:50 16:50 16:30 WBC 9.09 10^3/uL 10^3/uL (3.80-9.50) RBC 3.12 10^6/uL L 10^6/uL (4.18-5.33) Hgb 9.8 g/dL L g/dL (12.6-16.3) Hct 30.2 % L % (38.0-47.0) MCV 96.8 fL fL (81.5-99.8) MCH 31.4 pg pg (27.9-34.1) MCHC 32.5 g/dL g/dL (32.4-36.7) RDW 21.5 % H % (11.5-15.2) Plt Count 273 10^3/uL 10^3/uL (150-400) MPV 9.4 fL fL (8.7-11.7) Neut % (Auto) 77.9 % H % (39.3-74.2) Lymph % (Auto) 6.2 % L % (15.0-45.0) [place] % (Auto) 13.9 % H % (4.5-13.0) Eos % (Auto) 0.7 % % (0.6-7.6) Baso % (Auto) 0.7 % % (0.3-1.7) Nucleat RBC Rel Count 0.0 % % (0.0-0.2) Absolute Neuts (auto) 7.10 10^3/uL H 10^3/uL (1.70-6.50) Absolute Lymphs (auto) 0.56 10^3/uL L 10^3/uL (1.00-3.00) Absolute Monos (auto) 1.26 10^3/uL H 10^3/uL (0.30-0.80) Absolute Eos (auto) 0.06 10^3/uL 10^3/uL (0.03-0.40) Absolute Basos (auto) 0.06 10^3/uL 10^3/uL (0.02-0.10) Absolute Nucleated RBC 0.00 10^3/uL 10^3/uL (0-0.01) Immature Gran % 0.6 % % (0.0-1.1) Immature Gran # 0.05 10^3/uL 10^3/uL (0.00-0.10) RBC/WBC/PLT Morphology TNP Platelet Estimate ADEQUATE (ADEQ) Sodium 135 mEq/L mEq/L (135-145) Potassium 4.1 mEq/L mEq/L (3.3-5.0) Chloride 103 mEq/L mEq/L (97-110) Carbon Dioxide 25 mEq/l mEq/l (22-31) Anion Gap 7 mEq/L L mEq/L (8-16) BUN 15 mg/dL mg/dL (7-23) Creatinine 0.6 mg/dL mg/dL (0.6-1.0) Estimated GFR > 60 Glucose 116 mg/dL H mg/dL (70-100) Calcium 8.6 mg/dL mg/dL (8.5-10.4) Urine Color YELLOW Urine Appearance CLEAR Urine pH 5.0 (5.0-7.5) Ur Specific [place] 1.026 (1.002-1.030) Urine Protein NEGATIVE (NEGATIVE) Urine Ketones NEGATIVE (NEGATIVE) Urine Blood NEGATIVE (NEGATIVE) Urine Nitrate NEGATIVE (NEGATIVE) Urine Bilirubin NEGATIVE (NEGATIVE) Urine Urobilinogen NEGATIVE EU EU (0.2-1.0) Ur Leukocyte Esterase NEGATIVE (NEGATIVE) Urine Glucose NEGATIVE (NEGATIVE) Medications Given: Discontinued Medications Azithromycin (Zithromax) 500 mg PO EDNOW ONE PRN Reason: Protocol Stop: 06/30/18 17:24 Last Admin: 06/30/18 17:53 Dose: 500 mg Sodium Chloride (Ns) 1,000 mls @ 0 mls/hr IV EDNOW ONE; Wide Open PRN Reason: Protocol Stop: 06/30/18 17:09 Last Admin: 06/30/18 17:11 Dose: 1,000 mls Departure - Departure Disposition: Home, Routine, Self-Care Clinical Impression: Pneumonia Qualifiers: Pneumonia type: due to unspecified organism Laterality: right Lung location: upper lobe of lung Qualified Code(s): J18.1 - Lobar pneumonia, unspecified organism Condition: Good Instructions: Azithromycin (By mouth) Referrals: Maryellen Cardenas MD [Primary Care Provider] - As per Instructions Prescriptions: Azithromycin [Zithromax] 250 mg PO DAILY #4 tab
[2018-06-30 17:05] LABS: PLATELET COUNT 273 10^3/uL (150-400)
[2018-06-30] MEDS ORDERED: NS 1,000 ML IV ONE (17:08)
--- NOTE | 2018-06-30 17:15 | CPEKG ---
Test Reason : OPEN Blood Pressure : / mmHG Vent. Rate : 094 BPM Atrial Rate : 094 BPM P-R Int : 145 ms QRS Dur : 080 ms QT Int : 354 ms P-R-T Axes : 073 067 032 degrees QTc Int : 443 ms Sinus rhythm Confirmed by Candelario Will ([id number]) on 06/30/2018 5:14:42 PM Referred By: Confirmed By:Candelario Will
[2018-06-30] MEDS ORDERED: AZITHROMYCIN 250 MG TAB PO ONE (17:23)
[2018-06-30 17:53] VITALS: BP 103/48
== END 2018-06-30 18:01 | disposition home or self-care (01) ==
DX: J18.1 Lobar pneumonia, unspecified organism (principal); E86.9 Volume depletion, unspecified; C49.9 Malignant neoplasm of connective and soft tissue, unspecified; C78.7 Secondary malignant neoplasm of liver and intrahepatic bile duct

== ENCOUNTER 2018-07-10 11:13 | Emergency (ER) | payer OTHER, MEDICARE ==
[2018-07-10] MEDS ORDERED: NS 1,000 ML IV ONE (11:24)
--- NOTE | 2018-07-10 11:32 | EDPHY ---
HPI/HX/ROS/PE/MDM Narrative: CHIEF COMPLAINT: High resting heart rate. HPI: The patient is a 67 y/o female with active leiomyosarcoma with liver metastases currently treated with chemotherapy at [facility]. Her most recent chemotherapy treatment was on Thursday, 4 days ago. She complains of having a high resting heart rate since at least yesterday afternoon even while trying to sleep. As soon as she tries to walk or exert herself in any way she feels extremely fatigued, short of breath, and her heart rate increases further. She was seen here 10 days ago for fever and ultimately treated for community- acquired pneumonia on the advice of her oncologist. She was discharged on azithromycin, which seemed to improve her cough temporarily. She now feels she is coughing more frequently again. She denies chest pain, fever. REVIEW OF SYSTEMS: A comprehensive 10 system review of systems is otherwise negative aside from elements mentioned in the history of present illness. PMH: Metastatic leiomyosarcoma, GERD, osteoporosis SOCIAL HISTORY: at bedside. [facility] oncologist: Dr. Bartholomew Prior medical records reviewed including ED visit 06/30/18 for fever. PHYSICAL EXAM: General:Patient is alert, in no acute distress. HR 110. ENT:Eyes are normal to inspection. ENT inspection normal. Neck: Normal inspection. Full range of motion. Respiratory:No respiratory distress. Breath sounds normal bilaterally. Cardiovascular: Tachycardic regular rate and rhythm. Strong peripheral pulses. Normal cap refill. Abdomen:The abdomen is nontender to palpation. There are no peritoneal signs. Back: Normal to inspection. No tenderness to palpation. Skin: Normal color. No rash. Warm and dry. Extremities: Normal appearance. Full range of motion. Neuro: Oriented x3. Normal motor function. Normal sensory function. ED Course: This is a 67 y/o female with metastatic leiomyosarcoma currently on chemotherapy who presents with fatigue and dyspnea with any exertion and a rapid resting heart rate around 110. Her lungs are clear on auscultation. Concern for anemia or infection. Plan for IV, labs, EKG, chest x-ray. 1L IV NS ordered The 12 lead EKG was interpreted by myself. See hard copy and/or "tracemaster" electronic copy for interpretation. Chest x-ray: negative. Anemic with Hct 25, Hgb 8.2. WBC elevated 31. 1240: HR now down to 95. 1248: Consulted with patient's oncologist at [facility], Dr. Peterson. He recommends one unit transfusion and discharge home with follow up with their office if she is feeling well enough. He attributes her elevated WBC to one of the mediations she is on. Reevaluated patient and discussed findings. She agrees to transfusion. - Data Points Imaging Results: Imaging Impressions Chest X-Ray 07/10/18 11:32 Impression: New small right pleural effusion. Otherwise stable x4 months. Imaging: I viewed and interpreted images myself Laboratory Results: Laboratory Results 07/10/18 11:50 07/10/18 11:50 07/10/18 07/10/18 07/10/18 13:05 11:52 11:50 WBC RBC Hgb Hct MCV MCH MCHC RDW Plt Count MPV Neut % (Auto) Lymph % (Auto) [place] % (Auto) Eos % (Auto) Baso % (Auto) Nucleat RBC Rel Count Absolute Neuts (auto) Absolute Lymphs (auto) Absolute Monos (auto) Absolute Eos (auto) Absolute Basos (auto) Absolute Nucleated RBC Immature Gran % Seg Neutrophils % Band Neutrophils % Lymphocytes % Monocytes % Eosinophils % Basophils % Metamyelocytes % Myelocytes % Promyelocytes % Blast Cells % Immature Gran # Absolute Seg Neuts Absolute Band Neuts Absolute Lymphocytes Absolute Monocytes Absolute Eosinophils Absolute Basophils Absolute Metamyelocyte Absolute Myelocytes Absolute Promyelocytes Absolute Plasma Cells Nucleated RBCs Absolute Blast Cells Plasma Cells % Toxic Granulation Platelet Estimate Polychromasia Tear Drop Cells Oval Macrocytes Sodium 134 mEq/L L mEq/L (135-145) Potassium 3.7 mEq/L mEq/L (3.3-5.0) Chloride 105 mEq/L mEq/L (97-110) Carbon Dioxide 22 mEq/l mEq/l (22-31) Anion Gap 7 mEq/L mEq/L (6-14) BUN 14 mg/dL mg/dL (7-23) Creatinine 0.6 mg/dL mg/dL (0.6-1.0) Estimated GFR > 60 Glucose 104 mg/dL H mg/dL (70-100) Calcium 8.6 mg/dL mg/dL (8.5-10.4) POC Troponin I 0.00 ng/mL ng/mL (0.00-0.08) Patient ABO/Rh A POSITIVE Antibody Screen NEGATIVE Crossmatch IS Only See Detail 07/10/18 11:50 WBC 31.00 10^3/uL H 10^3/uL (3.80-9.50) RBC 2.55 10^6/uL L 10^6/uL (4.18-5.33) Hgb 8.2 g/dL L g/dL (12.6-16.3) Hct 25.0 % L % (38.0-47.0) MCV 98.0 fL fL (81.5-99.8) MCH 32.2 pg pg (27.9-34.1) MCHC 32.8 g/dL g/dL (32.4-36.7) RDW 21.0 % H % (11.5-15.2) Plt Count 61 10^3/uL L 10^3/uL (150-400) MPV 10.5 fL fL (8.7-11.7) Neut % (Auto) TNP Lymph % (Auto) TNP [place] % (Auto) TNP Eos % (Auto) TNP Baso % (Auto) TNP Nucleat RBC Rel Count TNP Absolute Neuts (auto) TNP Absolute Lymphs (auto) TNP Absolute Monos (auto) TNP Absolute Eos (auto) TNP Absolute Basos (auto) TNP Absolute Nucleated RBC TNP Immature Gran % TNP Seg Neutrophils % 80.0 % % Band Neutrophils % 5.0 % % Lymphocytes % 4.0 % % Monocytes % 1.0 % % Eosinophils % 0.0 % % Basophils % 0.0 % % Metamyelocytes % 10.0 % % Myelocytes % 0.0 % % Promyelocytes % 0.0 % % Blast Cells % 0.0 % % Immature Gran # TNP Absolute Seg Neuts 24.80 10^/uL H 10^/uL (1.70-6.50) Absolute Band Neuts 1.55 10^3/uL H 10^3/uL (0.00-0.70) Absolute Lymphocytes 1.24 10^3/uL 10^3/uL (1.00-3.00) Absolute Monocytes 0.31 10^3/uL 10^3/uL (0.30-0.80) Absolute Eosinophils 0.00 10^3/uL L 10^3/uL (0.03-0.40) Absolute Basophils 0.00 10^3/uL L 10^3/uL (0.02-0.10) Absolute Metamyelocyte 3.10 10^3/mL H 10^3/mL (0.00-0.00) Absolute Myelocytes 0.00 10^3/mL 10^3/mL (0.00-0.00) Absolute Promyelocytes 0.00 10^3/uL 10^3/uL (0.00-0.00) Absolute Plasma Cells 0.00 10^3/uL 10^3/uL (0.00-0.00) Nucleated RBCs 0 /100 WBC /100 WBC (0-0) Absolute Blast Cells 0.00 10^3/uL 10^3/uL (0.00-0.00) Plasma Cells % 0.0 % % Toxic Granulation PRESENT H Platelet Estimate DECREASED L (ADEQ) Polychromasia 1+ H Tear Drop Cells 1+ H Oval Macrocytes 1+ H Sodium Potassium Chloride Carbon Dioxide Anion Gap BUN Creatinine Estimated GFR Glucose Calcium POC Troponin I Patient ABO/Rh Antibody Screen Crossmatch IS Only Medications Given: Discontinued Medications Sodium Chloride (Ns) 1,000 mls @ 0 mls/hr IV EDNOW ONE; Wide Open PRN Reason: Protocol Stop: 07/10/18 11:25 Last Admin: 07/10/18 12:02 Dose: 1,000 mls Point of Care Test Results: Chemistry 07/10/18 11:52 POC Troponin I 0.00 ng/mL ng/mL (0.00-0.08) General Time Seen by Provider: 07/10/18 11:23 Initial Vital Signs: Initial Vital Signs Temperature (C) 36.8 C 07/10/18 11:24 Heart Rate 116 H 07/10/18 11:24 Respiratory Rate 16 07/10/18 11:24 Blood Pressure 121/58 H 07/10/18 11:24 O2 Sat (%) 98 07/10/18 11:24 O2 Delivery Mode Room Air Allergies/Adverse Reactions: codeine Allergy (Verified 06/30/18 15:22) diphenhydramine [From Benadryl] Allergy (Verified 06/30/18 15:22) Home Medications: Medication Instructions Recorded Herbals/Supplements -Info Only 1 ea PO DAILY 06/30/15 Vitamin B Complex [B Complex] 1 tab PO DAILY 06/30/15 Fluticasone Nasal [Flonase Nasal 1 spray EACHNARE DAILY PRN 02/26/18 [place]] Loratadine [Claritin 10 mg] 10 mg PO DAILY 02/26/18 Melatonin [Melatonin 3 MG (*)] 9 mg PO HS PRN tab 03/02/18 Sennosides/Docusate Sodium 1 - 2 tab PO BID PRN tab 03/02/18 [Senokot-S] Cholecalciferol Vit D3 [Vitamin D3 4,000 units PO DAILY 04/07/18 (*)] LORazepam [Ativan (*)] 1 mg PO DAILY PRN 04/07/18 Azithromycin [Zithromax] 250 mg PO DAILY #4 tab 06/30/18 Gemzar 06/30/18 Olaratumab 06/30/18 TaxoTERE 06/30/18 Departure - Departure Disposition: Home, Routine, Self-Care Clinical Impression: Uterine cancer Anemia Qualifiers: Anemia type: unspecified type Qualified Code(s): D64.9 - Anemia, unspecified Condition: Good Instructions: Anemia (ED) Additional Instructions: Follow up with your oncologist next week. Return to the ED for any worsening of condition. Referrals: Maryellen Cardenas MD [Primary Care Provider] - As per Instructions Report Scribed for: Norman Anderson Report Scribed by: Sara Bruno Date of Report: 07/10/18 Time of Report: 11:24 Physician Review and Approval Statement: Portions of this note were transcribed by an ED scribe. I personally performed the history, physical exam, and medical decision making; and confirm the accuracy of the information in the transcribed note.
[2018-07-10 12:42] LABS: PLATELET COUNT 61 10^3/uL (150-400)
[2018-07-10 15:58] VITALS: BP 107/61
--- NOTE | 2018-07-12 20:27 | CPEKG ---
Test Reason : OPEN Blood Pressure : / mmHG Vent. Rate : 105 BPM Atrial Rate : 105 BPM P-R Int : 130 ms QRS Dur : 075 ms QT Int : 337 ms P-R-T Axes : 067 068 -47 degrees QTc Int : 446 ms Sinus tachycardia Borderline T abnormalities, inferior leads Confirmed by Norman Anderson ([id number]) on 07/12/2018 8:27:09 PM Referred By: Confirmed By:Norman Anderson
== END 2018-07-10 16:07 | disposition home or self-care (01) ==
PROC: 30233N1 Transfusion of Nonautologous Red Blood Cells into Peripheral Vein, Percutaneous Approach (ICD-10-PCS; principal; 2018-07-10)
DX: D64.9 Anemia, unspecified (principal); C55 Malignant neoplasm of uterus, part unspecified; C78.7 Secondary malignant neoplasm of liver and intrahepatic bile duct; E86.9 Volume depletion, unspecified; Z92.21 Personal history of antineoplastic chemotherapy
CPT/HCPCS: 36430; 71046; 93005; 96360; 99285; J1642; P9016; 84484-PO

== ENCOUNTER → 2018-10-05 | Outpatient (CLI) | payer OTHER, MEDICARE ==
[~2018-10-05] MED LIST: LIDOCAINE 1% 300 MG/30 ML SDV ONE
== END ==
LOC: FIMAGING 14:12
PROVIDERS: ATTEND Nurse Practitioner
DX: R14.0 Abdominal distension (gaseous) (principal); D05.11 Intraductal carcinoma in situ of right breast; C78.6 Secondary malignant neoplasm of retroperitoneum and peritoneum; C78.7 Secondary malignant neoplasm of liver and intrahepatic bile duct

== ENCOUNTER → 2018-10-12 | Outpatient (CLI) | payer OTHER, MEDICARE | LOC: FIMAGING 11:47 | PROVIDERS: ATTEND Obstetrics & Gynecology | DX: R14.0 Abdominal distension (gaseous) (principal); R63.0 Anorexia; C17.9 Malignant neoplasm of small intestine, unspecified; C78.7 Secondary malignant neoplasm of liver and intrahepatic bile duct | CPT/HCPCS: 84481-90 ==

== ENCOUNTER → 2018-10-13 | Outpatient (CLI) | payer OTHER, MEDICARE | LOC: FIMAGING 14:37 | PROVIDERS: ATTEND Nurse Practitioner | PROC: 0W9F3ZZ Drainage of Abdominal Wall, Percutaneous Approach (ICD-10-PCS; principal; 2018-10-13) | DX: R18.8 Other ascites (principal) ==

== ENCOUNTER 2018-10-18 16:07 | Inpatient (IN) | payer OTHER, MEDICARE ==
[2018-10-18] MEDS ORDERED: NS 1,000 ML IV ONE (16:20)
[2018-10-18 17:20] LABS: PLATELET COUNT 84 10^3/uL (150-400)
[2018-10-18] MEDS ORDERED: ERTAPENEM 1 GM in NS 100 ML IV ONE (17:33)
[2018-10-18] MEDS ORDERED: VANCOMYCIN HCL/NORMAL SALINE 250 ML IV ONE (17:36)
[2018-10-18 17:45] LABS: INR 1.59 (0.83-1.16); PROTIME(PATIENT) 19.1 SEC (12.0-15.0)
--- NOTE | 2018-10-18 18:05 | EDPHY ---
H & P Stated Complaint: abdominal distention, fever and mouth sores. Chemo 6 days ago - Medical/Surgical History Hx Asthma: No Hx Chronic Respiratory Disease: No Hx Diabetes: No Hx Cardiac Disease: No Hx Renal Disease: No Hx Cirrhosis: No Hx Alcoholism: No Hx HIV/AIDS: No Hx Splenectomy or Spleen Trauma: No Other PMH: osteoporosis, hysterecomy, liver CA, right breast surgery, GERD, liver cancer-on chemo--anscutz - Social History Smoking Status: Never smoked Time Seen by Provider: 10/18/18 16:07 HPI/ROS: Chief complaint: Weakness History of present illness: This is a 68-year-old female who is currently under treatment for leiomyosarcoma with metastasis to the liver. Patient underwent her last round of chemotherapy 6 days ago. Shortly thereafter she started developed generalized weakness and malaise. She has had associated fever reaching 100.4 F, pain in the mouth making it difficult to eat and drink, decreased appetite and now abdominal pain. Patient reports associated cough although this is chronic in nature, she has had it for the last few years. It is worsening. She does report a few weeks ago she had abdominal discomfort, she had a paracentesis, approximately a L of fluid was removed, she states did not help her very much. Review of systems: 10 point review of systems was obtained and other than described above was negative (Kelby Mohan) - Physical Exam Exam: General Appearance: Alert, appears chronically unwell. Eyes: Pupils equal and round no pallor or injection. ENT, Mouth: Mucous membranes dry. She does have ulcerations in the oropharynx. Respiratory: Lung sounds globally diminished. Cardiovascular: Regular rate and rhythm. Gastrointestinal: Bowel sounds are present. Mild distention to the abdomen. Mild diffuse tenderness. Neurological: Alert. Strength and sensation symmetrical. Skin: Warm and dry, no rashes. Musculoskeletal: Neck is supple non tender. Extremities are symmetrical, full range of motion. Psychiatric: Patient is oriented X 3, there is no agitation. (Kelby Mohan) Constitutional: Initial Vital Signs Temperature (C) 37.3 C 10/18/18 16:24 Heart Rate 104 H 10/18/18 16:24 Respiratory Rate 18 10/18/18 16:24 Blood Pressure 120/56 L 10/18/18 16:24 O2 Sat (%) 94 10/18/18 16:24 O2 Delivery Mode Room Air Allergies/Adverse Reactions: codeine Allergy (Verified 10/18/18 16:23) diphenhydramine [From Benadryl] Allergy (Verified 10/18/18 16:23) Home Medications: Medication Instructions Recorded Chemo 0 mg IV Q7D 10/18/18 LORazepam [Lorazepam] 0.5 mg PO Q7D 10/18/18 Medical Decision Making - Diagnostics Imaging: Discussed imaging studies w/ call worker person Radiologist - Diagnostics Imaging Results: Imaging Impressions Chest X-Ray 10/18/18 16:21 Impression: Bilateral lower lobe consolidation with a large right pleural effusion. ED Course/Re-evaluation: Patient seen in conjunction with my secondary supervising physician Dr. Sid Vasquez. Patient arrived with EMS. After my initial evaluation of the patient I immediately discussed the case with Dr. Vasquez who closely followed along and saw the patient with me. Patient has metastatic leiomyosarcoma with mets to the liver. She is reporting recent worsening of overall symptoms. Evaluation revealed evidence of pneumonia and a new pleural effusion. She did have a pancytopenia. Abnormal LFTs. Mildly elevated lactate. I discussed this with Dr. Vasquez, we discussed if this was a true sepsis versus leukopenia secondary to her recent chemotherapy and tachycardia due to dehydration. She was IV hydrated and lactate was repeated and less than 2. Blood cultures were obtained and she was started on broad-spectrum antibiotics. She is admitted to the hospitalist service Dr. Peng Hugo for further care. Dr. Vasquez has spoken with her oncology group. The family has been made aware of the plan and voiced understanding and agreement with it. (Kelby Mohan) Other Provider: Assessed this patient in conjunction with RASHID Mohan. I agree with his treatment plan. I answered all questions for patient and family members. 1840: Consulted with Dr. Anand, oncology. His service will consult during admission. (Sid Vasquez) - Data Points Laboratory Results: Laboratory Results 10/18/18 17:16 10/18/18 17:16 10/18/18 10/18/18 10/18/18 18:00 17:17 17:17 WBC RBC Hgb Hct MCV MCH MCHC RDW Plt Count MPV Neut % (Auto) Lymph % (Auto) [place] % (Auto) Eos % (Auto) Baso % (Auto) Nucleat RBC Rel Count Absolute Neuts (auto) Absolute Lymphs (auto) Absolute Monos (auto) Absolute Eos (auto) Absolute Basos (auto) Absolute Nucleated RBC Immature Gran % Seg Neutrophils % Band Neutrophils % Lymphocytes % Monocytes % Eosinophils % Basophils % Metamyelocytes % Myelocytes % Promyelocytes % Blast Cells % Immature Gran # Absolute Seg Neuts Absolute Band Neuts Absolute Lymphocytes Absolute Monocytes Absolute Eosinophils Absolute Basophils Absolute Metamyelocyte Absolute Myelocytes Absolute Promyelocytes Absolute Plasma Cells Atypical Lymphocytes Absolute Blast Cells Plasma Cells % Platelet Estimate Polychromasia Hypochromasia PT 19.1 SEC H SEC (12.0-15.0) INR 1.59 H (0.83-1.16) APTT 104.0 SEC H SEC (23.0-38.0) VBG Lactic Acid 1.9 mmol/L mmol/L (0.7-2.1) Sodium Potassium Chloride Carbon Dioxide Anion Gap BUN Creatinine Estimated GFR Glucose Calcium Total Bilirubin 4.8 mg/dL H mg/dL (0.1-1.4) Conjugated Bilirubin Unconjugated Bilirubin AST ALT Alkaline Phosphatase Total Protein Albumin 10/18/18 10/18/18 10/18/18 17:16 17:16 17:15 WBC 1.36 10^3/uL L 10^3/uL (3.80-9.50) RBC 2.85 10^6/uL L 10^6/uL (4.18-5.33) Hgb 9.1 g/dL L g/dL (12.6-16.3) Hct 27.3 % L % (38.0-47.0) MCV 95.8 fL fL (81.5-99.8) MCH 31.9 pg pg (27.9-34.1) MCHC 33.3 g/dL g/dL (32.4-36.7) RDW 21.1 % H % (11.5-15.2) Plt Count 84 10^3/uL L 10^3/uL (150-400) MPV 11.4 fL fL (8.7-11.7) Neut % (Auto) Not Reported Lymph % (Auto) Not Reported [place] % (Auto) Not Reported Eos % (Auto) Not Reported Baso % (Auto) Not Reported Nucleat RBC Rel Count Not Reported Absolute Neuts (auto) Not Reported Absolute Lymphs (auto) Not Reported Absolute Monos (auto) Not Reported Absolute Eos (auto) Not Reported Absolute Basos (auto) Not Reported Absolute Nucleated RBC Not Reported Immature Gran % Not Reported Seg Neutrophils % 11.0 % % Band Neutrophils % 0.0 % % Lymphocytes % 84.0 % % Monocytes % 5.0 % % Eosinophils % 0.0 % % Basophils % 0.0 % % Metamyelocytes % 0.0 % % Myelocytes % 0.0 % % Promyelocytes % 0.0 % % Blast Cells % 0.0 % % Immature Gran # Not Reported Absolute Seg Neuts 0.15 10^3/uL L 10^3/uL (1.70-6.50) Absolute Band Neuts 0.00 10^3/uL 10^3/uL (0.00-0.70) Absolute Lymphocytes 1.14 10^3/uL 10^3/uL (1.00-3.00) Absolute Monocytes 0.07 10^3/uL L 10^3/uL (0.30-0.80) Absolute Eosinophils 0.00 10^3/uL L 10^3/uL (0.03-0.40) Absolute Basophils 0.00 10^3/uL L 10^3/uL (0.02-0.10) Absolute Metamyelocyte 0.00 10^3/mL 10^3/mL (0.00-0.00) Absolute Myelocytes 0.00 10^3/mL 10^3/mL (0.00-0.00) Absolute Promyelocytes 0.00 10^3/uL 10^3/uL (0.00-0.00) Absolute Plasma Cells 0.00 10^3/uL 10^3/uL (0.00-0.00) Atypical Lymphocytes 1+ H Absolute Blast Cells 0.00 10^3/uL 10^3/uL (0.00-0.00) Plasma Cells % 0.0 % % Platelet Estimate ADEQUATE (ADEQ) Polychromasia 1+ H Hypochromasia 1+ H PT INR APTT VBG Lactic Acid 2.2 mmol/L H mmol/L (0.7-2.1) Sodium 132 mEq/L L mEq/L (135-145) Potassium 3.7 mEq/L mEq/L (3.5-5.2) Chloride 107 mEq/L mEq/L (97-110) Carbon Dioxide 21 mEq/l L mEq/l (22-31) Anion Gap 4 mEq/L L mEq/L (6-14) BUN 17 mg/dL mg/dL (7-23) Creatinine 0.7 mg/dL mg/dL (0.6-1.0) Estimated GFR > 60 Glucose 104 mg/dL H mg/dL (70-100) Calcium 7.6 mg/dL L mg/dL (8.5-10.4) Total Bilirubin 4.9 mg/dL H mg/dL (0.1-1.4) Conjugated Bilirubin 3.2 mg/dL H mg/dL (0.0-0.5) Unconjugated Bilirubin 1.7 mg/dL H mg/dL (0.0-1.1) AST 63 IU/L H IU/L (14-46) ALT 39 IU/L IU/L (9-52) Alkaline Phosphatase 204 IU/L H IU/L (38-126) Total Protein 4.4 g/dL L g/dL (6.3-8.2) Albumin 1.9 g/dL L g/dL (3.5-5.0) Medications Given: Albuterol/Ipratropium (Duoneb) 3 ml IH QID LIEN Stop: 04/16/19 20:59 Last Admin: 10/18/18 21:45 Dose: Not Given Sodium Chloride (Ns) 1,000 mls @ 100 mls/hr IV CONT LIEN Stop: 04/16/19 19:29 Last Admin: 10/18/18 23:08 Dose: 1,000 mls Cefepime HCl 2 gm/ Sodium (Chloride) 100 mls @ 200 mls/hr IV Q8HRS LIEN PRN Reason: Protocol Stop: 11/17/18 22:29 Last Admin: 10/18/18 23:08 Dose: 100 mls Discontinued Medications Sodium Chloride (Ns) 1,000 mls @ 0 mls/hr IV EDNOW ONE; Wide Open PRN Reason: Protocol Stop: 10/18/18 16:21 Last Admin: 10/18/18 17:13 Dose: 1,000 mls Ertapenem 1 gm/ Sodium (Chloride) 100 mls @ 200 mls/hr IV EDNOW ONE PRN Reason: Protocol Stop: 10/18/18 18:02 Last Admin: 10/18/18 18:56 Dose: 100 mls Vancomycin/Sodium Chloride (Vancomycin 1 Gm (Premix)) 250 mls @ 250 mls/hr IV EDNOW ONE PRN Reason: Protocol Stop: 10/18/18 18:35 Last Admin: 10/18/18 17:55 Dose: 250 mls Ibuprofen (Motrin) 400 mg PO EDNOW ONE Stop: 10/18/18 18:43 Last Admin: 10/18/18 18:56 Dose: 400 mg Lidocaine (Lidocaine 2% Viscous) 5 ml PO EDNOW ONE Stop: 10/18/18 18:43 Last Admin: 10/18/18 18:56 Dose: 5 ml Departure - Departure Disposition: [facility] Inpatient Acute Clinical Impression: Pneumonia Qualifiers: Pneumonia type: due to unspecified organism Laterality: bilateral Lung location : lower lobe of lung Qualified Code(s): J18.1 - Lobar pneumonia, unspecified organism
[2018-10-18] MEDS ORDERED: LIDOCAINE 2% VISCOUS 15 ML UDCUP PO ONE (18:42)
[2018-10-18] MEDS ORDERED: IBUPROFEN 200 MG TAB PO ONE (18:42)
[2018-10-18] MEDS ORDERED: NS 1,000 ML IV SCH (19:00)
[2018-10-18] MEDS ORDERED: oxyCODONE IR 5 MG TAB PO PRN (19:18)
[2018-10-18] MEDS ORDERED: ONDANSETRON 4 MG/2 ML VIAL IVP PRN (19:18)
[2018-10-18] MEDS ORDERED: ONDANSETRON DISINTEGRATING 4 MG TAB PO PRN (19:18)
[2018-10-18] MEDS ORDERED: ACETAMINOPHEN 325 MG TAB PO PRN (19:18)
[2018-10-18] MEDS ORDERED: HYDROCODONE/APAP 5/325 TAB PO PRN (19:18)
[2018-10-18] MEDS ORDERED: PROMETHAZINE HCL 25 MG/ML INJ IVP PRN (19:18)
[2018-10-18] MEDS: IPRATROPIUM/ALBUTEROL 3 ML DEYVIAL IH SCH (21:45)
--- NOTE | 2018-10-18 22:34 | PDGENHP ---
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 Patient had started a new chemotherapy regimen recently which I believe is eribulin after completing a clinical trial with gemcitabine/taxotere and +/- olaratumab. From review of records available as well as discussion with family it sounds as though it has been equivocal whether or not she has been responding to treatment but for the last several weeks and particularly the last week she has been getting increasingly weak and having increased issues thought to be either due to progression of the cancer or side effect of the medications. She has had pain in her mouth and with swallowing, as well as abdominal distension with difficulty eating and feeling full after only a bite or two of food. She has barely eaten at all in a week. She has new abdominal pain that is very localized and sharp. She had a fever at home to 100.4. She and her family had an appointment to meet with palliative care at home today but given her worsening condition she came to the hospital instead. They note they have not felt they are ready for hospice or palliative care other than for symptom management but recognize that with her decline this may become necessary. She has had some cough and sob as well, the cough is not productive. History Information - Allergies/Home Medication List Allergies/Adverse Reactions: codeine Allergy (Verified 10/18/18 16:23) diphenhydramine [From Benadryl] Allergy (Verified 10/18/18 16:23) Home Medications: Chemo 0 mg IV Q7D 10/18/18 [Last Taken 10/12/18] LORazepam [Lorazepam] 0.5 mg PO Q7D 10/18/18 [Last Taken 10/12/18] I have personally reviewed and updated: family history, medical history, social history, surgical history - Past Medical History cancer, GERD Additional medical history: 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 History of neutropenic fever. - Surgical History Additional surgical history: Power port placement the left. Hysterectomy. Tumor resection off of the bowel 10/19/2017. Left femur fracture repair. Right breast surgery. - Family History Additional family history: Mother-CHF, AFib in HTN. Father-cardiac history unspecified. Brother-CAD/[place]. No family members with history of cancer. - Social History Smoking Status: Never smoked Additional social history: Patient is lives with her . Cor status-full. Review of Systems Review of Systems: ROS: 10pt was reviewed & negative except for what was stated in HPI & below Physical Exam Physical Exam: Temp Pulse Resp BP Pulse Ox 37.4 C 105 H 18 128/54 H 91 L 10/18/18 20:16 10/18/18 20:16 10/18/18 20:16 10/18/18 20:16 10/18/18 20:16 Constitutional: chronically ill appearing, cachectic Eyes: PERRL, icteric sclera Ears, Nose, Mouth, Throat: hearing normal, ears appear normal, dry mucous membranes Cardiovascular: regular rate and rhythym, no murmur, rub, or gallop, No edema Respiratory: reduced air movement, expiratory wheeze, inspiratory crackles Gastrointestinal: tenderness, distension, No guarding, No rebound Genitourinary: no bladder tenderness Skin: warm, No normal color Musculoskeletal: no muscle tenderness, generalized weakness, No asymmetric calves Neurologic: AAOx3 Psychiatric: interacting appropriately, not anxious, not encephalopathic Lab Data & Imaging Review 10/18/18 17:16 10/18/18 17:16 WBC 1.36 10^3/uL (3.80-9.50) L 10/18/18 17:16 RBC 2.85 10^6/uL (4.18-5.33) L 10/18/18 17:16 Hgb 9.1 g/dL (12.6-16.3) L 10/18/18 17:16 Hct 27.3 % (38.0-47.0) L 10/18/18 17:16 MCV 95.8 fL (81.5-99.8) 10/18/18 17:16 MCH 31.9 pg (27.9-34.1) 10/18/18 17:16 MCHC 33.3 g/dL (32.4-36.7) 10/18/18 17:16 RDW 21.1 % (11.5-15.2) H 10/18/18 17:16 Plt Count 84 10^3/uL (150-400) L 10/18/18 17:16 MPV 11.4 fL (8.7-11.7) 10/18/18 17:16 Neut % (Auto) Not Reported 10/18/18 17:16 Lymph % (Auto) Not Reported 10/18/18 17:16 [place] % (Auto) Not Reported 10/18/18 17:16 Eos % (Auto) Not Reported 10/18/18 17:16 Baso % (Auto) Not Reported 10/18/18 17:16 Nucleat RBC Rel Count Not Reported 10/18/18 17:16 Absolute Neuts (auto) Not Reported 10/18/18 17:16 Absolute Lymphs (auto) Not Reported 10/18/18 17:16 Absolute Monos (auto) Not Reported 10/18/18 17:16 Absolute Eos (auto) Not Reported 10/18/18 17:16 Absolute Basos (auto) Not Reported 10/18/18 17:16 Absolute Nucleated RBC Not Reported 10/18/18 17:16 Immature Gran % Not Reported 10/18/18 17:16 Seg Neutrophils % 11.0 % 10/18/18 17:16 Band Neutrophils % 0.0 % 10/18/18 17:16 Lymphocytes % 84.0 % 10/18/18 17:16 Monocytes % 5.0 % 10/18/18 17:16 Eosinophils % 0.0 % 10/18/18 17:16 Basophils % 0.0 % 10/18/18 17:16 Metamyelocytes % 0.0 % 10/18/18 17:16 Myelocytes % 0.0 % 10/18/18 17:16 Promyelocytes % 0.0 % 10/18/18 17:16 Blast Cells % 0.0 % 10/18/18 17:16 Immature Gran # Not Reported 10/18/18 17:16 Absolute Seg Neuts 0.15 10^3/uL (1.70-6.50) L 10/18/18 17:16 Absolute Band Neuts 0.00 10^3/uL (0.00-0.70) 10/18/18 17:16 Absolute Lymphocytes 1.14 10^3/uL (1.00-3.00) 10/18/18 17:16 Absolute Monocytes 0.07 10^3/uL (0.30-0.80) L 10/18/18 17:16 Absolute Eosinophils 0.00 10^3/uL (0.03-0.40) L 10/18/18 17:16 Absolute Basophils 0.00 10^3/uL (0.02-0.10) L 10/18/18 17:16 Absolute Metamyelocyte 0.00 10^3/mL (0.00-0.00) 10/18/18 17:16 Absolute Myelocytes 0.00 10^3/mL (0.00-0.00) 10/18/18 17:16 Absolute Promyelocytes 0.00 10^3/uL (0.00-0.00) 10/18/18 17:16 Absolute Plasma Cells 0.00 10^3/uL (0.00-0.00) 10/18/18 17:16 Atypical Lymphocytes 1+ H 10/18/18 17:16 Absolute Blast Cells 0.00 10^3/uL (0.00-0.00) 10/18/18 17:16 Plasma Cells % 0.0 % 10/18/18 17:16 Platelet Estimate ADEQUATE (ADEQ) 10/18/18 17:16 Polychromasia 1+ H 10/18/18 17:16 Hypochromasia 1+ H 10/18/18 17:16 PT 19.1 SEC (12.0-15.0) H 10/18/18 17:17 INR 1.59 (0.83-1.16) H 10/18/18 17:17 APTT 104.0 SEC (23.0-38.0) H 10/18/18 17:17 VBG Lactic Acid 1.9 mmol/L (0.7-2.1) 10/18/18 18:00 Sodium 132 mEq/L (135-145) L 10/18/18 17:16 Potassium 3.7 mEq/L (3.5-5.2) 10/18/18 17:16 Chloride 107 mEq/L (97-110) 10/18/18 17:16 Carbon Dioxide 21 mEq/l (22-31) L 10/18/18 17:16 Anion Gap 4 mEq/L (6-14) L 10/18/18 17:16 BUN 17 mg/dL (7-23) 10/18/18 17:16 Creatinine 0.7 mg/dL (0.6-1.0) 10/18/18 17:16 Estimated GFR > 60 10/18/18 17:16 Glucose 104 mg/dL (70-100) H 10/18/18 17:16 Calcium 7.6 mg/dL (8.5-10.4) L 10/18/18 17:16 Total Bilirubin 4.8 mg/dL (0.1-1.4) H 10/18/18 17:17 Conjugated Bilirubin 3.2 mg/dL (0.0-0.5) H 10/18/18 17:16 Unconjugated Bilirubin 1.7 mg/dL (0.0-1.1) H 10/18/18 17:16 AST 63 IU/L (14-46) H 10/18/18 17:16 ALT 39 IU/L (9-52) 10/18/18 17:16 Alkaline Phosphatase 204 IU/L (38-126) H 10/18/18 17:16 Total Protein 4.4 g/dL (6.3-8.2) L 10/18/18 17:16 Albumin 1.9 g/dL (3.5-5.0) L 10/18/18 17:16 Visualized and Interpreted Chest x-ray results: Yes Chest X-Ray results: infiltrate, effusion Assessment & Plan Assessment: 68 yo F with hx of metastatic leiomyosarcoma presenting with abdominal pain and distension, mouth pain, difficulty swallowing, PNA and overall FTT # PNA: with bilateral infiltrates and large right pleural effusion in setting of neutropenia and fever, will start cefepime for now and blood cultures are pending. Could tap the right pleural effusion which could be hepatic hydrothorax versus infectious but will defer that for the time being given patients lack of significant respiratory sxs and somewhat unclear goals of care as below. # abdominal pain and distension: with associated increased LFTs and bili elevation that was not present previously, will get abd US with dopplers, did have recent paracentesis that was negative for malignant cells, doubt SBP but if significant ascites present would consider diagnostic tap # mucositis: with ? of associated thrush particularly given esophageal discomfort as well with swallowing, will start magic mouthwash and nystatin s/s # metastatic leiomyosarcoma: has been on clinical trial recently, and has now undergone two treatments with what I believe is eribulin (this needs to be confirmed still). Oncology consulted, goals of care being clarified as below # pancytopenia: in the setting of chemotherapy and underlying malignancy, will continue to trend # FTT: with weight loss, weakness and generally becoming more debilitated, likely combination of chemo and disease progression, pt/ot/cm involved # osteoporosis # goals of care: FC, patient had appointment with June palliative care as an OP but ended up in hospital, sounds as though family may be leaning towards more palliative options given her ongoing decline but this will need to be discussed further with patient, family and oncology # IP status, will likely require > 48 hours stay for eval/mgmt of above Patient new to my care. Old records reviewed and summarized as above. Care plan reviewed with ER doctor and further hx obtained from family present at bedside.
[2018-10-18] MEDS ORDERED: guaiFENesin/CODEINE PHOS 10 ML UDCUP PO PRN (22:46)
[2018-10-18] MEDS ORDERED: GUAIFENESIN/DM 10 ML UDCUP PO PRN (22:59)
[2018-10-18] MEDS ORDERED: LORazepam 0.5 MG TAB PO ONE (23:05)
[2018-10-18] MEDS: NS 1,000 ML IV SCH (23:08)
[2018-10-18] MEDS: CEFEPIME HCL 2 GM in NS 100 ML IV SCH (23:08)
[2018-10-19] MEDS: NYSTATIN SUSP 500000 UNIT/5 ML UD LIQ PO SCH ×4 (05:51→20:03)
[2018-10-19] MEDS: CEFEPIME HCL 2 GM in NS 100 ML IV SCH ×2 (05:51→17:22)
[2018-10-19 06:05] LABS: PLATELET COUNT 68 10^3/uL (150-400)
[2018-10-19] MEDS: IPRATROPIUM/ALBUTEROL 3 ML DEYVIAL IH SCH (06:12)
[2018-10-19] MEDS ORDERED: ENOXAPARIN 40 MG/0.4 ML SYR SC SCH (09:00)
[2018-10-19] MEDS: MBX SOLN 30 ML BOTTLE PO PRN ×2 (09:36→17:22)
--- NOTE | 2018-10-19 10:58 | PDMN ---
Medical Necessity Medical necessity: Pt meets IP criteria as of 10/18/18 per MD and MCG [id number] ( Pneumonia, community acquired); est los > 2 mn for ongoing tx and management of Pneumonia with fever in the setting of neutropenia d/t metastatic leiomyosarcoma.
--- NOTE | 2018-10-19 13:07 | GCON ---
INPATIENT ONCOLOGY CONSULTATION DATE OF CONSULTATION: 10/19/2018 REFERRING PHYSICIAN: David Ontiveros MD OUTPATIENT ONCOLOGIST: Dr. Codey Shannon REASON FOR CONSULTATION: Metastatic leiomyosarcoma. HISTORY OF PRESENT ILLNESS: The patient is a 68-year-old woman with a history of metastatic leiomyos arcoma. She presented about a year ago with a small bowel mass and abdominal metastases. She had sepulveda rgery to remove the primary tumor and has received multiple lines of chemotherapy since that time. I nitially, she received doxorubicin and Olaratumab. She then received gemcitabine and Taxotere as par t of a clinical trial at [facility]. Recently, her CT showed progressive disease, and , she started on eribulin as a single agent on October 05 as third line therapy. After the second dose, she felt extremely tired and was essentially bedbound. She developed a fever to 100.4 at home and was brought to the emergency department yesterday evening. She was found to have a neutrophil c ount of 360. She was admitted for intravenous antibiotics and fluids. Currently, she still reports feeling very tired and worn out. She has poor appetite. She is not having any nausea or vomiting. PAST MEDICAL HISTORY: Otherwise unremarkable. CURRENT MEDICATIONS: Include [place], albuterol, cefepime, Dilaudid IV, hydrocodone. ALLERGIES: She is allergic to codeine. FAMILY HISTORY: Noncontributory. SOCIAL HISTORY: She is a nonsmoker, nondrinker. 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 She lives with h er . REVIEW OF SYSTEMS: Aside from pertinent positives in the HPI, a 14-point review of systems was negat sunil. EXAMINATION: VITAL SIGNS: Temperature is 36.4, blood pressure 132/54, heart rate 107, oxygen satura tion 95% on room air. GENERAL: She was a thin, somewhat cachectic appearing woman. She was extreme ly tired and was nearly asleep during much of our interview. HEENT: Oropharynx is notable for some mucositis. LUNGS: Clear to auscultation bilaterally. CARDIAC: Regular rate and rhythm. No murmurs , gallops, rubs. ABDOMEN: Normal bowel sounds. It was moderately distended without focal tendernes s. EXTREMITIES: 1+ edema. NEUROLOGIC: She was very tired, but arousable. Strength, sensation wer e grossly normal. LABORATORY/IMAGING: White count 1.24, hemoglobin 8, platelets 68. Sodium 135, potassium 3.2, chlori de 113, bicarb 22, BUN 17, creatinine 0.7. Total bilirubin 7.2, conjugated bilirubin 3.1, AST 45, AL T 45, alkaline phosphatase 169, albumin 1.6. Abdominal ultrasound showed multiple masses in the liver, the largest measuring 7 cm. There was a sm all volume ascites. There is no evidence of biliary obstruction. IMPRESSION: This is a 68-year-old woman with extensive metastases from a metastatic leiomyosarcoma. She is admitted with febrile neutropenia and overall failure to thrive. In general, her performance status is quite poor as result of the cancer, and she is having a difficult time tolerating even a r elatively low dose of the eribulin. I had a hellen discussion with her and her . I told them I think she would be unlikely to tole rate clinically meaningful doses of eribulin going forward and that she should strongly consider hosp ice. They will be meeting with Palliative Care this afternoon. She seems somewhat reluctant to stop cytotoxic therapy, though I do feel that she would have a hard time tolerating further treatment and the odds of it resulting in meaningful reduction in tumor size or extending her life are relatively slim. With respect to her bilirubin, this may reflect a chemotherapy effect. There does not appear to be b iliary obstruction. Her liver function may be somewhat compromised as a result of the tumor burden. I think this can be followed expectantly for the time being while we make decisions about the overal l direction of her care. Thank you for this consultation. I will continue to follow patient closely with you while she is in the hospital. /[id number]/MODL
--- NOTE | 2018-10-19 15:37 | ASMTCMCOM ---
CM Note CM Note Notes: Pt is a 68 yo F presenting with pnemonia. Pt has history of metastatic leiomyosarcoma. [facility] recently referred pt to Palliative Care with June. June came to meet with her today here. Pt fell today in bathroom. Reports weakness. Dispo needs are TBD at this time. CM to follow. Plan: TBD. Date Signed: 10/19/2018 03:37 PM Electronically Signed By:DEBORAH Nails
--- NOTE | 2018-10-19 15:41 | HOSPPROG ---
Hospitalist Progress Note Assessment/Plan: 68 yo F w metastatic leiomysosarcoma a/w FTT, RLL Pneumonia and now chronic cholecystitis pneumonia: treat as HCAP w cefepime reasonable to hold atypical coverage code: now dnr chronic cholecystitis: bilirubin has risen sharply during sep continue cefepime add flagyl poor candidate for surgery neuutropenia: 2/2 chemo follow proph: scd'd low platelets plan of care: pall care eval today Subjective: case d/w dr arvizu Objective: Vital Signs Temp Pulse Resp BP Pulse Ox 36.4 C 107 H 18 132/54 H 95 10/19/18 11:05 10/19/18 11:05 10/19/18 11:05 10/19/18 11:05 10/19/18 11:05 Laboratory Results 10/19/18 05:55 10/19/18 05:55 10/18/18 10/19/18 10/20/18 05:59 05:59 05:59 Intake Total 1946 Output Total 0 300 Balance 1946 -300 PT 19.1 SEC (12.0-15.0) H 10/18/18 17:17 INR 1.59 (0.83-1.16) H 10/18/18 17:17 - Physical Exam Constitutional: no apparent distress, appears nourished Eyes: PERRL, anicteric sclera Ears, Nose, Mouth, Throat: moist mucous membranes, hearing normal Cardiovascular: regular rate and rhythym, no murmur, rub, or gallop Respiratory: no respiratory distress, no rales or rhonchi Gastrointestinal: normoactive bowel sounds, No abel's sign, No guarding, No rebound Genitourinary: no bladder fullness, No aguillon in urethra Skin: warm, normal color Musculoskeletal: No full muscle strength Neurologic: AAOx3 Psychiatric: interacting appropriately ICD10 Worksheet Patient Problems: Problems Problem Status Onset Pneumonia Acute Femoral neck fracture Acute Fever Acute Neutropenic fever Acute
[2018-10-19] MEDS: LORazepam 1 MG TAB PO PRN (20:03)
[2018-10-19] MEDS: NS 1,000 ML IV SCH (23:33)
[2018-10-20] MEDS: CEFEPIME HCL 2 GM in NS 100 ML IV SCH ×2 (05:28→18:35)
[2018-10-20] MEDS: MBX SOLN 30 ML BOTTLE PO PRN (05:37)
[2018-10-20] MEDS: NYSTATIN SUSP 500000 UNIT/5 ML UD LIQ PO SCH (05:45)
--- NOTE | 2018-10-20 09:21 | HOSPPROG ---
Hospitalist Progress Note Assessment/Plan: 68 yo F w metastatic leiomysosarcoma a/w FTT, RLL Pneumonia and now chronic cholecystitis pneumonia: treat as HCAP w cefepime reasonable to hold atypical coverage code: now dnr chronic cholecystitis: bilirubin has risen sharply during sep continue cefepime add flagyl poor candidate for surgery no abel's sign strep bacteremia: source lungs vs GB await speciation will be covered by cefepime repeat 10/21 thrush: change fluconazole to IV as not tolerating s+s neuutropenia: 2/2 chemo follow proph: scd'd low platelets plan of care: pall care eval 10/19- no note daughter mentioned to me that she believes her mom should stop cancer therapy Subjective: case d/w dr arvizu. odynophagia. sacral film neg for fx Objective: Vital Signs Temp Pulse Resp BP Pulse Ox 36.6 C 102 H 16 114/48 L 92 10/20/18 04:00 10/20/18 04:00 10/20/18 04:00 10/20/18 04:00 10/20/18 04:00 Laboratory Results 10/19/18 05:55 10/19/18 05:55 10/19/18 10/20/18 10/21/18 05:59 05:59 05:59 Intake Total 1945 1715 Output Total 0 300 Balance 1945 1415 PT 19.1 SEC (12.0-15.0) H 10/18/18 17:17 INR 1.59 (0.83-1.16) H 10/18/18 17:17 - Physical Exam Constitutional: no apparent distress, appears nourished Eyes: PERRL, anicteric sclera Ears, Nose, Mouth, Throat: moist mucous membranes, hearing normal, ears appear normal Cardiovascular: regular rate and rhythym, no murmur, rub, or gallop Respiratory: no respiratory distress, no rales or rhonchi Gastrointestinal: No abel's sign, No guarding, No rebound Genitourinary: no bladder fullness, No aguillon in urethra Skin: warm, normal color Musculoskeletal: No full muscle strength Neurologic: No AAOx3 Psychiatric: interacting appropriately Lymph, Heme, Immunologic: no cervical LAD ICD10 Worksheet Patient Problems: Problems Problem Status Onset Chronic Disease Mgmt/Transitional care Acute Pneumonia Acute Femoral neck fracture Acute Fever Acute Neutropenic fever Acute
[2018-10-20] MEDS: FLUCONAZOLE/NaCl 100 ML IV SCH (10:25)
[2018-10-20] MEDS: ALBUTEROL 3 ML DEYVIAL IH PRN (10:36)
[2018-10-20 10:46] LABS: PLATELET COUNT 84 10^3/uL (150-400)
[2018-10-20] MEDS: HYDROmorphONE/DILAUDID 1 MG/ML INJ IVP PRN ×2 (11:24→14:32)
--- NOTE | 2018-10-20 12:00 | SOAPPROG ---
SOAP Progress Note Assessment/Plan: Assessment: 1. Metastatic leiomyosarcoma 2. FEbrile neutropenia 3. GPCs bacteremia 4. ?cholecystitis Very unlikely patient will recover to the point where additional cytotoxic therapy would be feasible. I recommended hospice at this point. Plan: - continue abx and IV fluids for now - continue goals of care discussions w/ pt and family - would hold off on procedures (eg cholecystecomy) given very poor prognosis from cancer 25 min spent w/ pt and in coordination of care. 10/20/18 11:58 Subjective: very tired. mucositis. Objective: exam: lying in bed, somnolent mucositis exam unchanged Vital Signs Temp Pulse Resp BP Pulse Ox 36.6 C 111 H 16 125/58 H 93 10/20/18 04:00 10/20/18 10:41 10/20/18 09:35 10/20/18 09:35 10/20/18 10:41 Laboratory Results 10/20/18 10:30 10/20/18 10:30 10/19/18 10/20/18 10/21/18 05:59 05:59 05:59 Intake Total 1946 1715 Output Total 0 300 Balance 1946 1415 PT 19.1 SEC (12.0-15.0) H 10/18/18 17:17 INR 1.59 (0.83-1.16) H 10/18/18 17:17 ICD10 Worksheet Patient Problems: Problems Problem Status Onset Chronic Disease Mgmt/Transitional care Acute Pneumonia Acute Femoral neck fracture Acute Fever Acute Neutropenic fever Acute
--- NOTE | 2018-10-20 13:20 | ASMTCMCOM ---
CM Note CM Note Notes: Patient plan of care reviewed in rounds. Met with her family who seems to understand that her treatment options are nearly exhausted at this time. The main complaint is her inability to swallow. Had meeting with June and family to discuss options for care moving forward. At present, the family and patient are focused on trying to improve her symptoms of painful oral intake. Will revisit with them tomorrow as the ultimate goal is for the patient to return to her home. Will revisit with them tomorrow. Plan: Likely to discharge with Hospice care though June. Date Signed: 10/20/2018 01:19 PM Electronically Signed By:Anna Marie Fong RN
[2018-10-20] MEDS ORDERED: HYDROmorphONE/DILAUDID 1 MG/ML INJ IVP PRN (17:27)
[2018-10-20] MEDS: NS 1,000 ML IV SCH (19:45)
[2018-10-20] MEDS ORDERED: PROTOCOL POTASSIUM 1 DOSE MISC PRN (19:48)
[2018-10-20] MEDS: POTASSIUM Cl (KCl) 100 ML IV SCH ×2 (20:44→22:17)
[2018-10-20] MEDS: LORazepam 1 MG TAB PO PRN (20:46)
[2018-10-21] MEDS: POTASSIUM Cl (KCl) 100 ML IV SCH ×7 (00:52→22:44)
[2018-10-21 04:58] LABS: PLATELET COUNT 89 10^3/uL (150-400)
[2018-10-21] MEDS: CEFEPIME HCL 2 GM in NS 100 ML IV SCH ×2 (04:59→17:08)
[2018-10-21] MEDS: FLUCONAZOLE/NaCl 100 ML IV SCH (11:28)
[2018-10-21] MEDS: MBX SOLN 30 ML BOTTLE PO PRN ×2 (11:31→18:56)
--- NOTE | 2018-10-21 13:36 | HOSPPROG ---
Hospitalist Progress Note Assessment/Plan: 68 yo F w metastatic leiomysosarcoma a/w FTT, RLL Pneumonia and now chronic cholecystitis pneumonia: treat as HCAP w cefepime reasonable to hold atypical coverage code: now dnr chronic cholecystitis: bilirubin has risen sharply during sep continue cefepime add flagyl poor candidate for surgery no abel's sign strep bacteremia: source lungs vs GB await speciation will be covered by cefepime repeat 10/21 10/21- may be headed towards hospice, hold on repeat blood cx thrush: change fluconazole to IV as not tolerating s+s neuutropenia: 10/30 chemo follow proph: scd'd low platelets plan of care: pall care eval 10/19- no note daughter mentioned to me that she believes her mom should stop cancer therapy 10/21: pall care meeting w leaning towards hospice, patient hasnt agreed oncology recommending hospice Subjective: case d/w pall care team, hospice [employer]PER[employer] FINISHING Objective: Vital Signs Temp Pulse Resp BP Pulse Ox 36.6 C 102 H 16 109/56 L 91 L 10/21/18 12:29 10/21/18 12:29 10/21/18 12:29 10/21/18 12:29 10/21/18 12:29 Microbiology 10/19/18 07:30 Urine Culture - Final Unspecified Enterococcus Faecalis One [place] Type Laboratory Results 10/21/18 04:45 10/21/18 04:45 10/20/18 10/21/18 10/22/18 05:59 05:59 05:59 Intake Total 1715 3250 Output Total 300 1 150 Balance 1415 3249 -150 PT 19.1 SEC (12.0-15.0) H 10/18/18 17:17 INR 1.59 (0.83-1.16) H 10/18/18 17:17 - Physical Exam Constitutional: no apparent distress, chronically ill appearing Eyes: PERRL, anicteric sclera Ears, Nose, Mouth, Throat: moist mucous membranes, hearing normal Cardiovascular: regular rate and rhythym, no murmur, rub, or gallop Respiratory: no respiratory distress, no rales or rhonchi Gastrointestinal: normoactive bowel sounds Genitourinary: No aguillon in urethra Skin: warm Musculoskeletal: No full muscle strength Neurologic: No AAOx3 ICD10 Worksheet Patient Problems: Problems Problem Status Onset Chronic Disease Mgmt/Transitional care Acute Pneumonia Acute Femoral neck fracture Acute Fever Acute Neutropenic fever Acute
--- NOTE | 2018-10-21 13:53 | SOAPPROG ---
SOAP Progress Note Assessment/Plan: Assessment: 1. Metastatic leiomyosarcoma 2. FEbrile neutropenia 3. bacteremia -strep mitis, strep parasanginous 4. ?cholecystitis Very unlikely patient will recover to the point where additional cytotoxic therapy would be feasible. I recommended hospice at this point. Plan: - continue abx and IV fluids for now - continue goals of care discussions w/ pt and family 10/20/18 11:58 10/21/18 13:53 10/21/18 13:53 Subjective: mouth somewhat better. still very weak. Objective: exam unchanged Vital Signs Temp Pulse Resp BP Pulse Ox 36.6 C 102 H 16 109/56 L 91 L 10/21/18 12:29 10/21/18 12:29 10/21/18 12:29 10/21/18 12:29 10/21/18 12:29 Microbiology 10/19/18 07:30 Urine Culture - Final Unspecified Enterococcus Faecalis One [place] Type Laboratory Results 10/21/18 04:45 10/21/18 04:45 10/20/18 10/21/18 10/22/18 05:59 05:59 05:59 Intake Total 1715 3250 Output Total 300 1 150 Balance 1415 3249 -150 PT 19.1 SEC (12.0-15.0) H 10/18/18 17:17 INR 1.59 (0.83-1.16) H 10/18/18 17:17 ICD10 Worksheet Patient Problems: Problems Problem Status Onset Chronic Disease Mgmt/Transitional care Acute Pneumonia Acute Femoral neck fracture Acute Fever Acute Neutropenic fever Acute
[2018-10-21] MEDS: CLOTRIMAZOLE 10 MG TROCHE PO SCH ×3 (14:12→20:32)
--- NOTE | 2018-10-21 15:17 | ASMTCMCOM ---
CM Note CM Note Notes: Patient plan of care reviewed in rounds. Her inquired about TPN. June Salomon NP, Marques Calixto and myself met with Kurt to review plan of care and further define role of palliative versus hospice care. Kurt verbalized understanding that TPN has little effect on providing increased survival in oncology patients. Emotional support provided. The patient is taking a little more orally. CM to follow. Plan: Per family decision, may go home with palliative versus hospice. Date Signed: 10/21/2018 03:17 PM Electronically Signed By:Anna Marie Fong RN
[2018-10-21] MEDS: NS 1,000 ML IV SCH (17:16)
[2018-10-21] MEDS: LORazepam 1 MG TAB PO PRN (20:34)
[2018-10-22] MEDS: POTASSIUM Cl (KCl) 100 ML IV SCH (00:27)
[2018-10-22] MEDS: CEFEPIME HCL 2 GM in NS 100 ML IV SCH ×2 (05:40→17:35)
[2018-10-22] MEDS: NS 1,000 ML IV SCH (06:01)
[2018-10-22] MEDS: CLOTRIMAZOLE 10 MG TROCHE PO SCH ×4 (06:02→21:27)
[2018-10-22] MEDS: FLUCONAZOLE/NaCl 100 ML IV SCH (08:52)
[2018-10-22] MEDS: ALBUTEROL 3 ML DEYVIAL IH PRN (09:35)
--- NOTE | 2018-10-22 10:43 | HOSPPROG ---
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 Norman Anand and much detail today. The patient does have advanced cancer and does not have good opportunity for further helpful treatment for her cancer. At this point further treatment of her infections or other acute medical issues will only lead her back to essentially untreatable advanced cancer. Dr. Anand is still recommending moving toward palliative/hospice care at this time. If her bacteremia is due to pneumonia it may be inherently treatable by antibiotics. However there appears to likely be infusion in the chest on the initial x-ray which could potentially be empyema. Also with strep paracentral in his and strep mitis, I am uncertain as to the origin of these organisms and there may be a more difficult infection to treat with just antibiotics here. Question whether she has the reserve to fight off such an infection as endocarditis or cholecystitis with bacteremia. 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 It is impossible on this single-view study to determine if this involves pleural effusion, infiltrate, or both. Lab data: White blood cell count improving but neutrophils not counted today Stable severe anemia hemoglobin 8 Platelets slowly improving Objective: Vital Signs Temp Pulse Resp BP Pulse Ox 36.6 C 99 24 H 116/61 96 10/22/18 07:41 10/22/18 09:35 10/22/18 09:35 10/22/18 07:41 10/22/18 09:35 Microbiology 10/19/18 07:30 Urine Culture - Final Unspecified Enterococcus Faecalis One [place] Type Laboratory Results 10/22/18 05:55 10/22/18 05:55 10/21/18 10/22/18 10/23/18 06:59 06:59 06:59 Intake Total 3250 3200 Output Total 1 450 Balance 3249 2750 PT 19.1 SEC (12.0-15.0) H 10/18/18 17:17 INR 1.59 (0.83-1.16) H 10/18/18 17:17 ICD10 Worksheet Patient Problems: Problems Problem Status Onset Chronic Disease [facility]/Transitional care Acute Pneumonia Acute Femoral neck fracture Acute Fever Acute Neutropenic fever Acute
--- NOTE | 2018-10-22 11:30 | SOAPPROG ---
SOAP Progress Note Assessment/Plan: Assessment: 1. Metastatic leiomyosarcoma 2. FEbrile neutropenia 3. bacteremia -strep mitis, strep parasanginous 4. ?cholecystitis Very unlikely patient will recover to the point where additional cytotoxic therapy would be feasible. I recommend hospice at this point. Plan: - continue abx and IV fluids for now - continue goals of care discussions w/ pt and family. Appears that family members would like her to enroll in hospice but patient is still somewhat resistant. 10/20/18 11:58 10/21/18 13:53 10/21/18 13:53 10/22/18 11:29 Subjective: pt remains extremely weak. unable to feed herself. c/o persistent oral pain. Objective: exam unchanged Vital Signs Temp Pulse Resp BP Pulse Ox 36.6 C 99 24 H 116/61 96 10/22/18 07:41 10/22/18 09:35 10/22/18 09:35 10/22/18 07:41 10/22/18 09:35 Microbiology 10/19/18 07:30 Urine Culture - Final Unspecified Enterococcus Faecalis One [place] Type Laboratory Results 10/22/18 05:55 10/22/18 05:55 10/21/18 10/22/18 10/23/18 05:59 05:59 05:59 Intake Total 3250 3200 Output Total 1 450 Balance 3249 2750 PT 19.1 SEC (12.0-15.0) H 10/18/18 17:17 INR 1.59 (0.83-1.16) H 10/18/18 17:17 ICD10 Worksheet Patient Problems: Problems Problem Status Onset Chronic Disease Mgmt/Transitional care Acute Pneumonia Acute Femoral neck fracture Acute Fever Acute Neutropenic fever Acute
--- NOTE | 2018-10-22 14:29 | ASMTCMCOM ---
CM Note CM Note Notes: Spoke with June. Lisa, from [facility], will be here at 4:30 to discuss palliative and hospice with them. D/C Plan: Home with potentially palliative or hospice care. Date Signed: 10/22/2018 02:28 PM Electronically Signed By:Ameena Patton
--- NOTE | 2018-10-22 17:11 | PDPCPN ---
Palliative Care Progress Note Assessment/Plan: Assessment: [facility] [address] [place] [id number] (O) [phone](F) PALLIATIVE CARE NOTE NAME: Lisa Zacarias : 48 Date: 10/20/2018 VISIT TYPE: Initial LOCATION: [facility] LEVEL OF CARE: Hospice eligible DIAGNOSES: 1. Leiomyoma sarcoma 2. Neutropenic fever 3. Mucositis CC: Initial hospital consultation HPI: Ms. Zacarias is a 68-year-old female with a history of metastatic leiomyosarcoma. She has received several lines of therapy with progressive disease. She was recently changed to eribulin and has received 2 cycles. She has been admitted to the inpatient setting with abdominal distention and discomfort as well as neutropenic fever and mucositis. She is having significant oral and esophageal discomfort. She was also found to have bilateral infiltrates and a large right pleural effusion. She is currently receiving IV antibiotics for the pneumonia and has started on IV fluconazole today for thrush. She was not able to tolerate nystatin swish and swallow. PMH: 1. Leiomyosarcoma 2. GERD 3. Osteoporosis ALLERGIES: Codeine, Benadryl FAMILY HISTORY: Mother: CHF, A. fib, hypertension Father: Unknown cardiac history Brother: Coronary artery disease, [place] SOCIAL HISTORY: 2 children. Currently living with her Kurt PATIENT GOALS OF CARE: 1. Spend time with her family 2. Expresses concern regarding her children and how they will cope with her . 3. Return home ACTIVE SYMPTOMS/ASSESSMENTS/RECOMMENDATIONS: 1. Leiomyosarcoma C49.9: Progressive disease. Oncology does not feel she would tolerate any further treatment. 2. Mucositis K12.31: Secondary to chemotherapy. Currently doing salt and soda rinses as well as receiving antifungal therapy. 3. Neutropenic fever D 70.9: Currently receiving broad-spectrum IV antibiotics. 4. Pneumonia J18.9: Currently receiving broad-spectrum IV antibiotics MODIFIED [place] SYMPTOM ASSESSMENT SCALE: 0-none; 1-3 mild; 4-6 moderate; 7-10 severe Unable to Respond: No [ ] Delirium: 0-none Depression: 2 Anxiety: 2 Tiredness (fatigue): 5-Mod Drowsiness (sleepiness): 0-none Pain: 5 Nausea: 0-none Anorexia: 4 Shortness of Breath: 0-none Secretions: 0-none Constipation: 0-none Symptom and side effect management: Not acceptable to patient and family RISK FACTORS FOR RE-HOSPITALIZATION: o NEEDS ASSISTANCE WITH ADLS/FALL RISK o CAREGIVER ANXIETY o >2 HOSPITALIZATIONS IN PAST 12 MONTHS o DISEASE EDUCATION DEFICIT OBJECTIVE FINDINGS Palliative Performance Score: 60 FAST: Not applicable NYHA: n/a Vital Signs: Wt: MAC: Neuro: A&O to person, place, time and event HEENT: Normocephalic; atraumatic. Slight white coating of the dorsum of the tongue. Unable to visualize the sublingual region, nuchal mucosa or posterior oropharynx. Sclera are icteric RESP: Regular, deep, symmetrical. No cough or wheezing CV: no LE edema GI: Mild abdominal distention with some tenderness to palpation. : no dysuria or hematuria MSK: Marked muscle wasting. Ambulatory with assist SKIN: intact. Moderate jaundice LAB Data: N/A Disposition: Inpatient hospitalization ADVANCE CARE PLANNING DISCUSSION MOST form: DNR PLAN: Extensive discussion with the patient her and daughter regarding goals of care. She would like to have further discussion with her family regarding palliative care versus hospice services. Her goals at this time are to have resolution of her mucositis and then would like to return home. At this time she would like to make further decisions regarding palliative care versus hospice services when she is at home. This discussion was held with the inpatient palliative care team as well as case management. Recommend Edy medley. 1. STOCK TAKER visit schedule to be scheduled upon discharge for community services. 2. 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 TIME SPENT: [id number] 70min >50% of the time spent counseling, educating and coordinating the above topics. Aime Dan [facility] Plan: 10/22/18 17:10 Objective: Vital Signs Temp Pulse Resp BP Pulse Ox 36.3 C 103 H 16 112/58 L 95 10/22/18 16:00 10/22/18 16:00 10/22/18 16:00 10/22/18 16:00 10/22/18 16:00 Microbiology 10/19/18 07:30 Urine Culture - Final Unspecified Enterococcus Faecalis One [place] Type Laboratory Results 10/22/18 05:55 10/22/18 05:55 10/21/18 10/22/18 10/23/18 05:59 05:59 05:59 Intake Total 3250 3200 Output Total 1 450 Balance 3249 2750 PT 19.1 SEC (12.0-15.0) H 10/18/18 17:17 INR 1.59 (0.83-1.16) H 10/18/18 17:17 ICD10 Worksheet Patient Problems: Problems Problem Status Onset Chronic Disease Mgmt/Transitional care Acute Pneumonia Acute Femoral neck fracture Acute Fever Acute Neutropenic fever Acute
--- NOTE | 2018-10-22 18:17 | HOSPPROG ---
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 Norman Anand and much detail today. The patient does have advanced cancer and does not have good opportunity for further helpful treatment for her cancer. At this point further treatment of her infections or other acute medical issues will only lead her back to essentially untreatable advanced cancer. Dr. Anand is still recommending moving toward palliative/hospice care at this time. If her bacteremia is due to pneumonia it may be inherently treatable by antibiotics. However there appears to likely be infusion in the chest on the initial x-ray which could potentially be empyema. Also with strep paracentral in his and strep mitis, I am uncertain as to the origin of these organisms and there may be a more difficult infection to treat with just antibiotics here. Question whether she has the reserve to fight off such an infection as endocarditis or cholecystitis with bacteremia. Again she is not really a good surgical candidate if her gallbladder is the source At this time the patient and her are both agreeing to begin hospice care and they are hoping to do home hospice perhaps even in 2 days. I have taken time with the patient and her at the bedside this afternoon and answered all of her questions around home care, prognosis, origin of symptoms, and symptom management. I did recommend that she use the oral mouth rinses much more often as they seem to be helping. Will add some pain medicine as well Seen by me today on hospitals rounds and multidisciplinary rounds I reviewed the case today in detail with doctors Eladio Wesley and Norman Anand SUBJECTIVE: Her main discomfort today is oral and pharyngeal ulceration pain. 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 It is impossible on this single-view study to determine if this involves pleural effusion, infiltrate, or both. Lab data: White blood cell count improving but neutrophils not counted today Stable severe anemia hemoglobin 8 Platelets slowly improving Objective: Vital Signs Temp Pulse Resp BP Pulse Ox 36.3 C 103 H 16 112/58 L 95 10/22/18 16:00 10/22/18 16:00 10/22/18 16:00 10/22/18 16:00 10/22/18 16:00 Microbiology 10/19/18 07:30 Urine Culture - Final Unspecified Enterococcus Faecalis One [place] Type Laboratory Results 10/22/18 05:55 10/22/18 17:45 10/21/18 10/22/18 10/23/18 06:59 06:59 06:59 Intake Total 3250 3200 Output Total 1 450 Balance 3249 2750 PT 19.1 SEC (12.0-15.0) H 10/18/18 17:17 INR 1.59 (0.83-1.16) H 10/18/18 17:17 - Time Spent With Patient Time Spent with Patient: greater than 35 minutes Time Spent with Patient: Greater than 35 minutes spent on this patients care, greater than 50% of time spent counseling, educating, and coordinating care regarding the above mentioned plan. ICD10 Worksheet Patient Problems: Problems Problem Status Onset Chronic Disease Mgmt/Transitional care Acute Pneumonia Acute Femoral neck fracture Acute Fever Acute Neutropenic fever Acute
--- NOTE | 2018-10-22 20:44 | ASMTCMCOM ---
CM Note CM Note Notes: Pt and her met with June. They have chosen to participate in hospice care. Pt's has asked if pt can be d/nae on Thursday. June will deliver DME in the morning and has asked if pt can be d/nae between 12:30 and 1:00PM. Information will be given to pt's hospitalist. Order resent to [facility]. D/C Plan: Home with [facility]. Date Signed: 10/22/2018 03:48 PM Electronically Signed By:Ameena Patton
[2018-10-22] MEDS: LORazepam 1 MG TAB PO PRN (21:27)
[2018-10-23] MEDS: CLOTRIMAZOLE 10 MG TROCHE PO SCH ×5 (05:16→20:53)
[2018-10-23] MEDS: MBX SOLN 30 ML BOTTLE PO PRN (15:59)
[2018-10-23] MEDS ORDERED: LACTULOSE 20 GM/30 ML UDCUP PO PRN (17:01)
[2018-10-23] MEDS ORDERED: MAGNESIUM HYDROXIDE 30 ML UDCUP PO PRN (17:01)
[2018-10-23] MEDS ORDERED: BISACODYL 10 MG SUPP PR PRN (17:01)
[2018-10-23] MEDS ORDERED: POLYETHYLENE GLYCOL 3350 17 GM PKT PO PRN (17:01)
[2018-10-23] MEDS ORDERED: traMADol 50 MG TAB PO PRN (17:02)
[2018-10-23] MEDS ORDERED: PHENYLEPHRINE/SHK LV/MO/PET,WH 1 APP/GM OINT PR PRN (17:04)
[2018-10-23] MEDS ORDERED: LIDOCAINE 2% JELLY 6 ML TOPICAL SYR TP ONE (17:06)
[2018-10-23] MEDS ORDERED: LIDOCAINE 2% JELLY 5 ML TUBE TP ONE (17:06)
--- NOTE | 2018-10-23 18:22 | HOSPPROG ---
Hospitalist Progress Note Assessment/Plan: 68 yo F w metastatic leiomysosarcoma a/w FTT, RLL Pneumonia and now chronic cholecystitis *Suspected pneumonia in immune compromised host: -on my review of x-ray there is a pleural effusion, so question whether there is truly pneumonia or whether there is pneumonia along with possible empyema *strep bacteremia: one bottle S parasanguinous, other bottle S mitis -source lungs vs GB or other *neutropenia/pancytopenia: 2/2 chemo *thrush: On fluconazole *chronic cholecystitis poor candidate for surgery *proph: scd's only this time low platelets code: dnr At this point she is appearing to me to start to fail fairly rapidly. As best I can tell there has not been any more discussion with the hospice or palliative care services. Family still hoping to trying get her home. Will talk to case management and see what we can do to move things along for them. Still really need to assess whether they are going to be able to support her adequately at home. 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 Looks very weak skin warm dry color ok resps not labored abd soft distended with some diffuse upper abdominal tenderness nothing palpable limbs warm, no edema iv site ok Objective: Vital Signs Temp Pulse Resp BP Pulse Ox 36.4 C 103 H 20 123/62 H 92 10/23/18 16:35 10/23/18 16:35 10/23/18 16:35 10/23/18 16:35 10/23/18 16:35 Laboratory Results 10/22/18 05:55 10/22/18 17:45 10/22/18 10/23/18 10/24/18 06:59 06:59 06:59 Intake Total 3200 200 Output Total 450 150 Balance 2750 50 PT 19.1 SEC (12.0-15.0) H 10/18/18 17:17 INR 1.59 (0.83-1.16) H 10/18/18 17:17 - Time Spent With Patient Time Spent with Patient: greater than 35 minutes Time Spent with Patient: Greater than 35 minutes spent on this patients care, greater than 50% of time spent counseling, educating, and coordinating care regarding the above mentioned plan. ICD10 Worksheet Patient Problems: Problems Problem Status Onset Chronic Disease Mgmt/Transitional care Acute Pneumonia Acute Femoral neck fracture Acute Fever Acute Neutropenic fever Acute
[2018-10-23] MEDS: FAMOTIDINE 20 MG TAB PO SCH (20:52)
[2018-10-23] MEDS: SENNOSIDES/DOCUSATE SODIUM TAB PO SCH (20:52)
[2018-10-23] MEDS: HYDROCORTISONE 0.5% CREAM TP SCH (20:53)
[2018-10-23] MEDS: LORazepam 1 MG TAB PO PRN (21:35)
[2018-10-24] MEDS: CLOTRIMAZOLE 10 MG TROCHE PO SCH ×5 (09:30→21:48)
[2018-10-24] MEDS: HYDROCORTISONE 0.5% CREAM TP SCH ×2 (09:30→20:31)
[2018-10-24] MEDS: FAMOTIDINE 20 MG TAB PO SCH ×2 (09:30→20:30)
[2018-10-24] MEDS: SENNOSIDES/DOCUSATE SODIUM TAB PO SCH ×2 (09:39→20:30)
--- NOTE | 2018-10-24 09:58 | ASMTCMCOM ---
CM Note CM Note Notes: Chart reviewed. Patient likely to discharge to home with [facility] hospice care. They family verbalized yesterday fear of her ability to get home safely due to decline in functional status. The patient had previously voiced her desire to return to her home. CM available for needs, Plan: Hopefully home with hospice this pm. Date Signed: 10/24/2018 09:57 AM Electronically Signed By:Anna Marie Fong RN
--- NOTE | 2018-10-24 12:53 | ASMTCMCOM ---
CM Note CM Note Notes: Patient plan of care reviewed in am rounds. Patient is 68 year old female with cancer and infection and has exhausted treatment options, She is a DNR. The family, AYAD and [place] have engaged in numerous conversations surrounding palliative and hospice care. Met with patient's and daughter. They feel that they could not successfully care for patient at home without additional help. The patient has previously shared with her she would not want to pay for out of pocket services but they may need to consider hiring additional help. I have provided home with the [facility] and highlighted the home care agencies for hire to bridge the gap between hospice and the families needs. CM to follow for needs. Plan: TBD Date Signed: 10/24/2018 12:52 PM Electronically Signed By:Anna Marie Fong RN
--- NOTE | 2018-10-24 17:56 | HOSPPROG ---
Hospitalist Progress Note Assessment/Plan: 68 yo F w metastatic leiomysosarcoma a/w FTT, RLL Pneumonia and now chronic cholecystitis *Suspected pneumonia in immune compromised host: -on my review of x-ray there is a pleural effusion, so question whether there is truly pneumonia or whether there is pneumonia along with possible empyema *strep bacteremia: one bottle S parasanguinous, other bottle S mitis -source lungs vs GB or other * restless leg syndrome *neutropenia/pancytopenia: 2/2 chemo *thrush: On fluconazole *chronic cholecystitis poor candidate for surgery *proph: scd's only this time low platelets code: dnr PLANS: * Continue to titrate pain management but we seem to be fairly close to keeping her quite comfortable * For her legs will try some Wilver stockings * If need be we can add some medication for restless leg syndrome * Continue efforts to get her set up to go home with home hospice; this has been fairly complicated, it sounds like the has had some misunderstanding see from our communications we are trying to bring him to clear understanding of her issues and the management questions at hand which are largely logistic about home hospice care per se Seen by me on hospitaist rounds as well as multidisciplinary rounds today SUBJECTIVE: Throat pain, abdominal pain, and peroneal of anal pain are all notably better today Has still some discomfort in her calves, and as I discussed with her it sounds a bit like restless leg syndrome which she says she has. 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: Exam: More awake today, and answers questions more promptly and clearly, speech is more articulate Looks very weak skin warm dry color ok resps not labored abd soft distended with some diffuse upper abdominal tenderness nothing palpable limbs warm, no edema iv site ok Objective: Vital Signs Temp Pulse Resp BP Pulse Ox 36.6 C 100 20 119/58 L 92 10/24/18 13:38 10/24/18 13:38 10/24/18 13:38 10/24/18 13:38 10/24/18 13:38 Laboratory Results 10/22/18 05:55 10/22/18 17:45 01/10/24/18 10/25/18 06:59 06:59 06:59 Intake Total 200 270 Output Total 150 Balance 50 270 PT 19.1 SEC (12.0-15.0) H 10/18/18 17:17 INR 1.59 (0.83-1.16) H 10/18/18 17:17 - Time Spent With Patient Time Spent with Patient: greater than 35 minutes Time Spent with Patient: Greater than 35 minutes spent on this patients care, greater than 50% of time spent counseling, educating, and coordinating care regarding the above mentioned plan. ICD10 Worksheet Patient Problems: Problems Problem Status Onset Chronic Disease Mgmt/Transitional care Acute Pneumonia Acute Femoral neck fracture Acute Fever Acute Neutropenic fever Acute
[2018-10-25] MEDS: CLOTRIMAZOLE 10 MG TROCHE PO SCH ×5 (05:55→20:34)
[2018-10-25] MEDS: FAMOTIDINE 20 MG TAB PO SCH ×2 (08:28→20:34)
[2018-10-25] MEDS: SENNOSIDES/DOCUSATE SODIUM TAB PO SCH ×2 (08:29→20:32)
[2018-10-25] MEDS: HYDROCORTISONE 0.5% CREAM TP SCH ×2 (08:50→22:29)
--- NOTE | 2018-10-25 19:19 | HOSPPROG ---
Hospitalist Progress Note Assessment/Plan: 68 yo F w metastatic leiomysosarcoma a/w FTT, RLL Pneumonia and now chronic cholecystitis *Suspected pneumonia in immune compromised host: -on my review of x-ray there is a pleural effusion, so question whether there is truly pneumonia or whether there is pneumonia along with possible empyema *strep bacteremia: one bottle S parasanguinous, other bottle S mitis -source lungs vs GB or other * restless leg syndrome *neutropenia/pancytopenia: 2/ chemo *thrush: On fluconazole *chronic cholecystitis poor candidate for surgery *proph: scd's only this time low platelets She is somewhat upset that her , hospital staff, and hospice staff have been working on arranging details/logistics to get things in place for her to go home with hospice. Feels "betrayal" on part of her . I explained that there is much work to be done to get her set up to go home, and that it requires many people to be involved, and that she does not really have the strength or energy to go this at present, and it would be better for her to rest and use the energy she has for visiting with family and necessary interactions with staff for her care here. Assured her that all involved in planning efforts are doing so with her best interests in mind, and that we have shared and will continue to share all of the issues, plans etc with her. She was concerned that whatever plans are put into place will not be able to change if need arises, assured her otherwise. 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: Exam: More awake today, and answers questions more promptly and clearly, speech is more articulate Looks very weak skin warm dry color ok resps not labored abd soft distended with some diffuse upper abdominal tenderness nothing palpable limbs warm, no edema iv site ok Objective: Vital Signs Temp Pulse Resp BP Pulse Ox 36.4 C 100 18 120/63 92 10/25/18 14:17 10/25/18 14:17 10/25/18 14:17 10/25/18 14:17 10/25/18 14:17 Laboratory Results 10/22/18 05:55 10/22/18 17:45 10/24/18 10/25/18 10/26/18 06:59 06:59 06:59 Intake Total 270 300 200 Output Total 100 Balance 270 200 200 PT 19.1 SEC (12.0-15.0) H 10/18/18 17:17 INR 1.59 (0.83-1.16) H 10/18/18 17:17 - Time Spent With Patient Time Spent with Patient: greater than 35 minutes Time Spent with Patient: Greater than 35 minutes spent on this patients care, greater than 50% of time spent counseling, educating, and coordinating care regarding the above mentioned plan. ICD10 Worksheet Patient Problems: Problems Problem Status Onset Chronic Disease Mgmt/Transitional care Acute Pneumonia Acute Femoral neck fracture Acute Fever Acute Neutropenic fever Acute
[2018-10-25] MEDS: LORazepam 1 MG TAB PO SCH (20:33)
[2018-10-26] MEDS: CLOTRIMAZOLE 10 MG TROCHE PO SCH ×5 (05:22→20:02)
[2018-10-26] MEDS: FAMOTIDINE 20 MG TAB PO SCH ×2 (09:07→20:02)
[2018-10-26] MEDS: HYDROCORTISONE 0.5% CREAM TP SCH ×2 (09:08→19:59)
[2018-10-26] MEDS: SENNOSIDES/DOCUSATE SODIUM TAB PO SCH ×2 (09:08→20:02)
--- NOTE | 2018-10-26 13:19 | ASMTCMCOM ---
CM Note CM Note Notes: Patient plan of care reviewed in am rounds. Met with Kurt who signed on with [facility] care. They would like to transfer tomorrow. Transport arranged by June for stretcher transport. PCS form in envelope by her chart with copy of MOST form. CM available should other needs arise. Plan: Home with hospice care. Date Signed: 10/26/2018 01:18 PM Electronically Signed By:Anna Marie Fong RN
--- NOTE | 2018-10-26 18:14 | HOSPPROG ---
Hospitalist Progress Note Assessment/Plan: 68 yo F w metastatic leiomysosarcoma a/w FTT, RLL Pneumonia and now chronic cholecystitis *Suspected pneumonia in immune compromised host, suspect aspiration pneumonia: -status post course of antibiotics which was not complete but she has gone to comfort measures here moving towards home hospice *strep bacteremia: one bottle S parasanguinous, other bottle S mitis -source lungs * pain management; current pain sources include -oropharyngeal stomatitis from chemo along with thrush, doing much better on mouth rinses and Diflucan -upper abdomen better with Pepcid and Celebrex -perianal pain better with topical care -mild ache from restless legs and edema in her calves, better with Wilver stockings *restless leg syndrome, chronic stable *neutropenia/pancytopenia: 2/ chemo *thrush: On fluconazole *chronic cholecystitis poor candidate for surgery *proph: scd's only this time low platelets PLANS: * Continue to titrate pain management but we seem to be keeping her quite comfortable * continue palliative/comfort care here * DC planning efforts: Sounds like all is ready, current plan is to go home tomorrow with home hospice Count includes the [facility] Seen by me on hospitaist rounds as well as multidisciplinary rounds today SUBJECTIVE: Pain management remain satisfactory for patient at this time Had some rectal bleeding this morning which I think is hemorrhoidal issues been having intermittent pain there; has not recurred since this morning Taking in some food and fluids She is exhausted OBJECTIVE Vitals reviewed: No fever since day of admission, 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, 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59 (0.83-1.16) H 10/18/18 17:17 - Time Spent With Patient Time Spent with Patient: greater than 35 minutes Time Spent with Patient: Greater than 35 minutes spent on this patients care, greater than 50% of time spent counseling, educating, and coordinating care regarding the above mentioned plan. ICD10 Worksheet Patient Problems: Problems Problem Status Onset Chronic Disease Mgmt/Transitional care Acute Pneumonia Acute Femoral neck fracture Acute Fever Acute Neutropenic fever Acute
[2018-10-26] MEDS: LORazepam 1 MG TAB PO SCH (20:01)
[2018-10-26] MEDS ORDERED: HYDROmorphONE/DILAUDID 2 MG/ML INJ IVP PRN (20:30)
[2018-10-27] MEDS: CLOTRIMAZOLE 10 MG TROCHE PO SCH (05:35)
[2018-10-27 08:26] VITALS: BP 114/53
[2018-10-27] MEDS ORDERED: morphINE 10 MG/0.5 ML UDSYR PO PRN (11:50)
[2018-10-27] MEDS ORDERED: LORazepam 1 MG TAB PO PRN (11:50)
--- NOTE | 2018-10-27 12:59 | PDIAF ---
- Diagnosis Code Status: Do Not Resuscitate - Medication Management Discharge Medications: electronically signed and located in the Home Medication List. - Orders Diet Recommendation: no restrictions on diet Additional Instructions: Home hospice - Follow Up Care Current Providers and Referrals: Maryellen Cardenas MD [Primary Care Provider] - As per Instructions
--- NOTE | 2018-10-27 13:12 | ASMTLACE ---
LACE Length of stay for Answers: 7-13 days current admission Acuity / Level of Answers: Yes Care: Did the patient have an inpatient admission? Comorbidities - select Answers: Any tumor (including all that apply lymphoma or leukemia) # of Emergency department Answers: 3-4 visits in the last 6 months Score: 13 Date Signed: 10/27/2018 01:12 PM Electronically Signed By:Anna Marie Fong RN
--- NOTE | 2018-10-27 13:14 | ASMTDCNOTE ---
Case Management Discharge Discharge Order Complete? Answers: Yes Patient to Obtain Answers: via Family Medications Transportation Arranged Answers: [facility] Stretcher Case Management Transport Answers: Yes Form Complete Faxed Final Orders Answers: Yes Family Notified Answers: Yes Discharge Comments Notes: Patient discharged to home with hospice via stretcher. Date Signed: 10/27/2018 01:13 PM Electronically Signed By:Anna Marie Fong RN
--- NOTE | 2018-10-27 19:15 | GDS ---
[f rep st] DISCHARGE SUMMARY DISCHARGE DIAGNOSES: 1. Metastatic leiomyosarcoma. 2. Severe sepsis due to strep parasanguinis and strep mitis. 3. Neutropenic fever. 4. Possible cholecystitis. 5. Pneumonia. 6. Oropharyngeal stomatitis from chemo. HISTORY: Lisa is a 68-year-old female with metastatic leiomyosarcoma. She presented with neutropenic fever and severe sepsis. Blood cultures grew strep parasanguinis and strep mitis. Source of bacter emia is either pneumonia versus chronic cholecystitis. Her malignancy is poorly controlled and she i s having failure to thrive. Oncology recommended hospice. Palliative Care was consulted. Decision was made to proceed with home hospice. Antibiotics were discontinued. She will discharge on full co mfort measures. DISCHARGE MEDICATIONS: Please see computer record for full detailed list. New medications: 1. Roxanol 5-40 mg q.2 hours as needed. 2. MVX needed. 3. 5 times a day as needed. 4. Ativan 0.5-2 mg p.o. q.2 hours as needed. ADDITIONAL DISCHARGE INSTRUCTIONS: Discharge to home hospice. Greater than 30 minutes' time spent arranging this discharge. Patient seen and examined by me on the day of discharge. /[id number]/MODL
== END 2018-10-27 13:30 | disposition hospice, home (50) | DRG 871 ==
LOC: EDUNIT# → F1N 20:08
PROVIDERS: ADMIT Internal Medicine; ATTEND Internal Medicine
DX: A40.8 Other streptococcal sepsis (principal); R65.20 Severe sepsis without septic shock; J69.0 Pneumonitis due to inhalation of food and vomit; K81.1 Chronic cholecystitis; D61.810 Antineoplastic chemotherapy induced pancytopenia; D70.1 Agranulocytosis secondary to cancer chemotherapy; R62.7 Adult failure to thrive; B37.0 Candidal stomatitis; T45.1X5A Adverse effect of antineoplastic and immunosuppressive drugs, initial encounter; C78.7 Secondary malignant neoplasm of liver and intrahepatic bile duct; Z85.89 Personal history of malignant neoplasm of other organs and systems; K21.9 Gastro-esophageal reflux disease without esophagitis; Z66 Do not resuscitate; Z51.5 Encounter for palliative care
CPT/HCPCS: 96365; 97162-GP; 97166-GO; A9537; J0692; J1170; J1335; J1450; J1642; J1650; J2270; J3370; J3480; J7613